=== PATIENT | female | born 1940 | race Caucasian/White ===

== ENCOUNTER 2017-02-01 11:59 | Emergency (ER) | payer MEDICARE, BC ==
[2017-02-01 12:30] VITALS: BP 131/88
--- NOTE | 2017-02-01 12:33 | EDM.PDOC ---
[id number] Time Seen by Provider: 02/01/17 12:15 Source of Information: Reports: Patient History Limitations: Reports: No Limitations - History of Present Illness INITIAL COMMENTS - FREE TEXT/NARRATIVE: 76-year-old female was in the hospital visiting her when she tripped and fell and hit her head hard on the floor. She had no loss of consciousness, has no neurologic symptoms and actually feels fine but she is on Coumadin and the charge nurse who saw her fall was concerned about the possibility of serious injury due to how hard her head hit the floor. She denies neck pain, no nausea or vomiting, no visual complaints. No other injuries Onset: Sudden Duration: Hour(s): (Within the last hour) Location: Reports: Head Severity: Mild Associated Symptoms: Reports: No Other Symptoms - Related Data Allergies Allergy/AdvReac Type Severity Reaction Status Date / Time amoxicillin Allergy Cannot Verified 02/18/16 14:26 Remember ampicillin Allergy Cannot Verified 02/18/16 14:26 Remember Home Meds: Home Meds Citalopram Hydrobromide [Citalopram HBr] 10 mg PO DAILY 02/18/16 [History] Famotidine [Take Home: Famotidine 20 MG, 3 Tab Pack] 20 mg PO BID 02/18/16 [ History] Metoprolol Succinate [Toprol XL] 25 mg PO DAILY 02/18/16 [History] Simvastatin [Simvastatin] 20 mg PO BEDTIME 02/18/16 [History] Warfarin [Coumadin] 5 mg PO .Pharmacy To Dose 02/18/16 [History] levETIRAcetam [Keppra] 1,000 mg PO BID 02/18/16 [History] Past Medical History Cardiovascular History: Reports: Afib, High Cholesterol Gastrointestinal History: Reports: Chronic Diarrhea, GERD Genitourinary History: Reports: Urinary Incontinence 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: Neurological History: Reports: CVA, Migraines, Seizure, Speech Problems Other Neuro History: hemiplegia right side Psychiatric History: Reports: Depression, Mood Swings - Past Surgical History Female Surgical History: Reports: Breast Biopsy, Hysterectomy Social & Family History - Tobacco Use Smoking Status *Q: Former Smoker - Recreational Drug Use Recreational Drug Use: No ED ROS GENERAL - Review of Systems Review Of Systems: See Below Constitutional: Denies: Fever, Chills Respiratory: Denies: Shortness of Breath Cardiovascular: Denies: Chest Pain GI/Abdominal: Denies: Nausea, Vomiting : Reports: No Symptoms 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: Reports: No Symptoms Skin: Reports: No Symptoms. Denies: Bruising Neurological: Denies: Headache ED EXAM, HEAD INJURY - Physical Exam Exam: See Below Exam Limited By: No Limitations General Appearance: Alert, No Apparent Distress Head: Atraumatic (I cannot find any physical evidence of trauma to the head or scalp) Nexus Criteria: No: Painful Distraction Injuries Neck: Non-Tender, Full Range of Motion Respiratory: No Respiratory Distress, Lungs Clear Neurologic: No Motor/Sensory Deficits, Normal Mood/Affect, Oriented x 3 Course - Vital Signs Last Recorded V/S: Last Vital Signs Temp 97.2 F 02/01/17 12:25 Pulse 80 02/01/17 12:25 Resp 16 02/01/17 12:25 BP 131/88 02/01/17 12:25 Pulse Ox 96 02/01/17 12:25 - Re-Assessments/Exams Free Text/Narrative Re-Assessment/Exam: 02/01/17 12:[address] without contrast was obtained. 02/01/17 12:53 Patient remained at her normal baseline without symptoms. CT was negative for acute findings. Departure - Departure Time of Disposition: 13:01 Disposition: Home, Self-Care 01 Condition: Good Clinical Impression: Closed head injury Qualifiers: Encounter type: initial encounter Qualified Code(s): S09.90XA - Unspecified injury of head, initial encounter - Discharge Information Instructions: Head Injury, Adult, [id number] Referrals: PCP,None [Primary Care Provider] - Forms: ED Department Discharge Care Plan Goals: Activity as tolerated, no change in medications. Return anytime if worsening or concerns.
--- NOTE | 2017-02-01 13:12 | CT ---
Head wo Cont HISTORY: fall, hit head Axial spiral noncontrasted CT scan of the brain was obtained along with high-resolution bone reconst ructions. COMPARISON: 02/18/2016 FINDINGS: No acute intracranial hemorrhage or infarct is identified. No mass lesion, mass effect, or midline shift is seen. Redemonstrated are low-attenuation changes in the deep white matter cerebral hemispheres bilaterally consistent with chronic microvascular ischemic disease. These changes are g reater on the left. Old lacunar infarcts are seen in the basal ganglia bilaterally volume less urban es in the left frontal, temporal, and parietal lobes appear stable probably correlating with the old ischemia. There is mild compensatory enlargement left lateral ventricle which is stable. No abnorma l extra-axial fluid collections are seen. Visualized paranasal sinuses and mastoid air cells are herberth ar. Bone windows show no evidence for fracture. IMPRESSION: 1. No acute hemorrhage, infarct, or other acute intracranial abnormality is identified. Negative for skull fracture. 2. Stable chronic microvascular ischemic changes and old lacunar infarcts. Stable mild cerebral atro phy. 3. Overall no significant interval change compared with 02/18/2016. Report was called to Dr. Tang in the Emergency Department at 1303 hours. Total DLP 827 mGycm
== END 2017-02-01 13:01 | disposition home or self-care (01) ==
LOC: JP.ED 11:59
DX: S09.90XA Unspecified injury of head, initial encounter (principal); I48.91 Unspecified atrial fibrillation; E78.00 Pure hypercholesterolemia, unspecified; K21.9 Gastro-esophageal reflux disease without esophagitis; F32.9 Major depressive disorder, single episode, unspecified; I69.351 Hemiplegia and hemiparesis following cerebral infarction affecting right dominant side; Z79.01 Long term (current) use of anticoagulants; Z79.899 Other long term (current) drug therapy; Z88.1 Allergy status to other antibiotic agents; Z90.710 Acquired absence of both cervix and uterus; Z87.891 Personal history of nicotine dependence; W01.0XXA Fall on same level from slipping, tripping and stumbling without subsequent striking against object, initial encounter
CPT/HCPCS: 70450; 70450-26; 99284; 99284-25

== ENCOUNTER 2017-12-21 12:38 | Emergency (ER) | payer MEDICARE, BC ==
[2017-12-21 13:30] VITALS: BP 118/60
--- NOTE | 2017-12-21 14:00 | EDM.PDOC ---
ED HPI GENERAL MEDICAL PROBLEM - General Chief Complaint: Upper Extremity Injury/Pain Stated Complaint: FELL ON STAIR AT HOME Time Seen by Provider: 12/21/17 13:30 Source of Information: Reports: Patient, Family History Limitations: Reports: Other (hx of stroke) - History of Present Illness INITIAL COMMENTS - FREE TEXT/NARRATIVE: Pt fell approx 6 feet off deck at her home. Pt hit her head and her rt elbow. Patient denies pain at this time. This is second fall in 2weeks. 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 brought patient in concerned as patient is on coumadin and previous fall had fractures to right arm Onset: Today Onset Date: 12/21/17 Duration: Hour(s): Location: Reports: Head, Upper Extremity, Right Severity: Mild Improves with: Reports: Other (denies pain) Worsens with: Reports: None Context: Reports: Trauma Associated Symptoms: Denies: Headaches Denies Pain Score (Numeric/FACES): 0 - Related Data Allergies Allergy/AdvReac Type Severity Reaction Status Date / Time amoxicillin Allergy Cannot Verified 12/21/17 13:42 Remember ampicillin Allergy Cannot Verified 12/21/17 13:42 Remember Home Meds: Home Meds Citalopram Hydrobromide [Citalopram HBr] 10 mg PO DAILY 02/18/16 [History] Metoprolol Succinate [Toprol XL] 25 mg PO DAILY 02/18/16 [History] RX: Famotidine [Take Home: Famotidine 20 MG, 3 Tab Pack] 20 mg PO BID 02/18/16 [ History] Simvastatin 20 mg PO BEDTIME 02/18/16 [History] Warfarin [Coumadin] 5 mg PO ASDIRECTED 02/18/16 [History] levETIRAcetam [Keppra] 1,000 mg PO BID 02/18/16 [History] Past Medical History Cardiovascular History: Reports: Afib, High Cholesterol Gastrointestinal History: Reports: Chronic Diarrhea, GERD Genitourinary History: Reports: Urinary Incontinence 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 Denies: Vision Change Respiratory: Reports: No Symptoms. Denies: Shortness of Breath Cardiovascular: Reports: No Symptoms. Denies: Chest Pain Endocrine: Reports: No Symptoms GI/Abdominal: Reports: No Symptoms. Denies: Abdominal Pain : Reports: No Symptoms 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: Reports: No Symptoms. Denies: Neck Pain, Shoulder Pain, Arm Pain, Back Pain Skin: Reports: No Symptoms Neurological: Reports: No Symptoms. Denies: Dizziness, Headache Psychiatric: Reports: No Symptoms ED EXAM, GENERAL - Physical Exam Exam: See Below Free Text/Narrative:: Pt conversing per her usual self. Able to answer questions however answers are not always appropriate to the question. This may be from previous stroke, however the patient did hit her head. Patient has abrasion to rt elbow. Denies pain. able to move all extremities. Full ROM of right elbow slight grimace with PROM to Right elbow Exam Limited By: Other (previous stroke) General Appearance: Alert, No Apparent Distress Eye Exam: Bilateral Eye: Vision Changes (denies vision changes since fall) Head: Normocephalic, Other (no outward signs of trauma to back of head) Neck: Normal Inspection, Full Range of Motion Respiratory/Chest: No Respiratory Distress, Lungs Clear, Normal Breath Sounds Cardiovascular: Normal Peripheral Pulses, Regular Rate, Rhythm, No Edema GI/Abdominal: Normal Bowel Sounds Back Exam: Full Range of Motion Extremities: Other (right foot drop) Neurological: Alert, Oriented, Memory Loss Recent Events, Other (does not remember the fall) Psychiatric: Normal Affect, Normal Mood Skin Exam: Warm, Dry, Other (abrasion to right elbow ) ED GENERAL MEDICAL PROCEDURES - Laceration/Wound Repair Right Elbow Appearance: Superficial Distal NVT: Neuro & Vascular Intact Course - Vital Signs Text/Narrative:: Plan for CT of head without contrast due to fall of 6ft without remembering the incident and plain films of the elbow. Last Recorded V/S: Last Vital Signs Temp 35.7 C 12/21/17 13:55 Pulse 73 12/21/17 13:55 Resp 16 12/21/17 13:55 BP 118/60 12/21/17 13:55 Pulse Ox 95 12/21/17 13:55 - Orders/Labs/Meds Orders: Active Orders 24 hr Category Date Time Status Head wo Cont [CT] Stat Exams 12/21/17 14:07 Ordered - Radiology Interpretation Free Text/Narrative:: No acute fracture or effusion to rt elbow per radiologist No acute bleed or fracture on CT per radiologist CT Results Date: 12/21/17 Departure - Departure Time of Disposition: 15:20 Disposition: Home, Self-Care 01 Condition: Good Clinical Impression: Concussion - Discharge Information Instructions: Head Injury, Adult, [id number] Referrals: Huber Roberson MD [Primary Care Provider] - Forms: ED Department Discharge Additional Instructions: Your xrays do not show any new injury of or broken bones in the head or in your right elbow. Cleanse your elbow and keep it clean to prevent infection. Follow -up with your primary care provider regarding potential PT assistance for your increasing right foot drop. Use your cane or walker as appropriate for greater stability and to prevent future falls. Care Plan Goals: Return to ER if any concern or changes in mental status. Rest today and return to your activity as tolerated. Followup with Dr. Roberson as needed - Problem List & Annotations (1) Concussion SNOMED Code(s): 252676312 Code(s): S06.0X9A - CONCUSSION W LOSS OF CONSCIOUSNESS OF UNSP DURATION, INIT Status: Acute - My Orders Last 24 Hours: My Active Orders 12/21/17 14:07 Head wo Cont [CT] Stat - Assessment/Plan Last 24 Hours: My Active Orders 12/21/17 14:07 Head wo Cont [CT] Stat
--- NOTE | 2017-12-21 14:32 | CR ---
Elbow Min 3V Rt CLINICAL HISTORY: Fall FINDINGS: No acute fracture or dislocation is noted. The fat pads are in normal position . There is s ome minimal spurring off of the medial epicondyle. Impression: No acute fracture or effusion Minimal spurring off the medial epicondyle
--- NOTE | 2017-12-21 22:39 | CT ---
CT concussion Head wo Cont CLINICAL HISTORY: Fall, head trauma COMPARISON: 01 February 2017 TECHNIQUE: Transverse scans were obtained from the base of the skull through the vertex without IV co ntrast on a multislice, multidetector CT scanner. Auto dosage reduction and iterative reconstruction techniques employed. FINDINGS: There is an area of encephalomalacia in the left temporal parietal and left basal ganglia r egion. This is similar to prior study. There is some periventricular and subcortical lucency bilatera lly unchanged from prior study. There is no mass effect or hemorrhage. No skull fracture is identifie d. There is no mass effect, hemorrhage, or extraaxial collection. The basal cisterns and sulci over t he convexities are prominent. The ventricles are prominent. 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 This is unchanged since 2017 Moderate age-related atrophy. Chronic ischemic microvascular changes No hemorrhage or extra-axial collection seen Without
== END 2017-12-21 15:20 | disposition home or self-care (01) ==
LOC: JP.ED 12:38
DX: S06.0X0A Concussion without loss of consciousness, initial encounter (principal); S50.311A Abrasion of right elbow, initial encounter; I48.91 Unspecified atrial fibrillation; E78.00 Pure hypercholesterolemia, unspecified; K21.9 Gastro-esophageal reflux disease without esophagitis; Z88.1 Allergy status to other antibiotic agents; Z79.899 Other long term (current) drug therapy; Y99.0 Civilian activity done for income or pay; W10.8XXA Fall (on) (from) other stairs and steps, initial encounter
CPT/HCPCS: 70450; 70450-26; 73080-26-RT; 73080-RT; 99284-25

== ENCOUNTER 2018-11-28 22:57 | Emergency (ER) | payer MEDICARE, BC ==
[2018-11-28 23:09] VITALS: BP 109/52
[2018-11-28] MEDS ORDERED: Bacitracin Oint 1 GM U/D Packet TOP ONE (23:25)
--- NOTE | 2018-11-28 23:37 | EDM.PDOC ---
ED HPI GENERAL MEDICAL PROBLEM - General Chief Complaint: Laceration Stated Complaint: CUT LEG IN SHOWER Time Seen by Provider: 11/28/18 23:10 Source of Information: Reports: Patient, Family History Limitations: Reports: No Limitations - History of Present Illness INITIAL COMMENTS - FREE TEXT/NARRATIVE: 78-year-old female with a previous stroke who has right-sided weakness has been falling fairly frequently, tonight she fell in the shower and scraped the anterior aspect of her right lower leg. Onset: Sudden Duration: Hour(s): (1 hour ago) Location: Reports: Lower Extremity, Right Associated Symptoms: Denies: Chest Pain, Cough, Fever/Chills, Nausea/Vomiting, Shortness of Breath - Related Data Allergies Allergy/AdvReac Type Severity Reaction Status Date / Time amoxicillin Allergy Cannot Verified 11/28/18 23:14 Remember ampicillin Allergy Cannot Verified 11/28/18 23:14 Remember Home Meds: Home Meds Citalopram Hydrobromide [Citalopram HBr] 10 mg PO BID 02/18/16 [History] Famotidine [Take Home: Famotidine 20 MG, 3 Tab Pack] 20 mg PO BID 02/18/16 [ History] Metoprolol Succinate [Toprol XL] 25 mg PO DAILY 02/18/16 [History] Simvastatin 20 mg PO BEDTIME 02/18/16 [History] Warfarin [Coumadin] 5 mg PO ASDIRECTED 02/18/16 [History] levETIRAcetam [Keppra] 1,000 mg PO BID 02/18/16 [History] Past Medical History Cardiovascular History: Reports: Afib, High Cholesterol Gastrointestinal History: Reports: Chronic Diarrhea, GERD Genitourinary History: Reports: Urinary Incontinence 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: 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 History: Reports: Fracture, Other (See Below) Other 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 History: r elbow stress fx Neurological History: Reports: CVA, Migraines, Seizure, Speech Problems Other Neuro History: hemiplegia right side Psychiatric History: Reports: Depression, Mood Swings Hematologic History: Reports: Anticoagulation Therapy - Infectious Disease History Infectious Disease History: Reports: Chicken Pox, Measles, Mumps - Past Surgical History Female Surgical History: Reports: Breast Biopsy, Hysterectomy 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 Surgical History: Reports: Hip Replacement, Other (See Below) Other 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 Surgeries/Procedures:: partial hip replacement to fix femur neck fracture Social & Family History - Family History Family Medical History: Unobtainable - Tobacco Use Smoking Status *Q: Unknown Ever Smoked - Caffeine Use Caffeine Use: Reports: None ED ROS GENERAL - Review of Systems Review Of Systems: See Below Constitutional: Denies: Fever, Chills, Malaise Respiratory: Denies: Shortness of Breath Cardiovascular: Denies: Chest Pain GI/Abdominal: Denies: Abdominal Pain Neurological: Reports: Other (Chronic right sided weakness from previous stroke) Psychiatric: Reports: No Symptoms ED EXAM, SKIN/RASH Exam: See Below Exam Limited By: No Limitations General Appearance: Alert, No Apparent Distress Head: Atraumatic Respiratory/Chest: No Respiratory Distress Extremities: Other (exam otherwise limited to the right lower extremity. She has a 14 cm longitudinal superficial skin tear/laceration of the anterior lower leg. No bony tenderness.) Neurological: Alert, Oriented Course - Vital Signs Last Recorded V/S: Last Vital Signs Temp 98.9 F 11/28/18 23:20 Pulse 94 11/28/18 23:20 Resp 14 11/28/18 23:20 BP 109/52 L 11/28/18 23:20 Pulse Ox 96 11/28/18 23:20 - Orders/Labs/Meds Meds: Medications Discontinued Medications Generic Name Dose Route Start Last Admin Trade Name Freq PRN Reason Stop Dose Admin Bacitracin 1 dose 11/28/18 23:25 11/28/18 23:56 Bacitracin Oint 1 Gm TOP 11/28/18 23:26 1 dose ONETIME ONE Administration - Re-Assessments/Exams Free Text/Narrative Re-Assessment/Exam: 11/29/18 17:43 The wound was cleaned, some bacitracin applied and a nonstick dressing and bandage with mild pressure. She should have this redressed and examined in 2 days. Departure - Departure Time of Disposition: 00:40 Disposition: Home, Self-Care 01 Condition: Good Clinical Impression: Laceration of right lower leg Qualifiers: Encounter type: initial encounter Qualified Code(s): S81.811A - Laceration without foreign body, right lower leg, initial encounter - Discharge Information Instructions: Wound Care, Adult Referrals: Huber Roberson MD [Primary Care Provider] - Forms: ED Department Discharge Care Plan Goals: Keep wound covered until morning, and consider a dressing change and reevaluation at the clinic on . Dr. Benítez has special training in wound care, if he is able to fit you in I would recommend him if possible. If not any of the primary providers at the clinic should see you on .
== END 2018-11-29 00:25 | disposition home or self-care (01) ==
LOC: JP.ED 22:57
DX: S81.811A Laceration without foreign body, right lower leg, initial encounter (principal); E78.00 Pure hypercholesterolemia, unspecified; K21.9 Gastro-esophageal reflux disease without esophagitis; Z79.01 Long term (current) use of anticoagulants; I48.91 Unspecified atrial fibrillation; Z86.73 Personal history of transient ischemic attack (TIA), and cerebral infarction without residual deficits; Z79.899 Other long term (current) drug therapy; Z88.1 Allergy status to other antibiotic agents; W18.2XXA Fall in (into) shower or empty bathtub, initial encounter
CPT/HCPCS: 99282

== ENCOUNTER 2019-07-11 17:36 | Inpatient (IN) | payer MEDICARE, BC ==
--- NOTE | 2019-07-11 18:16 | EDM.PDOC ---
ED HPI GENERAL MEDICAL PROBLEM - General Chief Complaint: General Stated Complaint: CONFUSION Time Seen by Provider: 07/11/19 18:16 Source of Information: Reports: Patient, Family History Limitations: Reports: Altered Mental Status - History of Present Illness INITIAL COMMENTS - FREE TEXT/NARRATIVE: 79 years old female patient with history of baseline dementia, seizure, A. fib and other medical problem presented to the ER by her with a chief complaint of worsening confusion and altered mental status since last night. History collected from her at the bedside due to her altered mental status. Progressively getting worse. No report of any cough or fever. No report of any chest pain or shortness breath. No report of any head injury or loss of consciousness. No report of any change of her urination. No diarrhea or constipation. - Related Data Allergies Allergy/AdvReac Type Severity Reaction Status Date / Time amoxicillin Allergy Cannot Verified 07/11/19 18:19 Remember ampicillin Allergy Cannot Verified 07/11/19 18:19 Remember Home Meds: Home Meds Citalopram Hydrobromide [Citalopram HBr] 10 mg PO BID 02/18/16 [History] Famotidine [Take Home: Famotidine 20 MG, 3 Tab Pack] 20 mg PO BID 02/18/16 [ History] Metoprolol Succinate [Toprol XL] 25 mg PO DAILY 02/18/16 [History] Simvastatin 20 mg PO BEDTIME 02/18/16 [History] Warfarin [Coumadin] 5 mg PO ASDIRECTED 02/18/16 [History] levETIRAcetam [Keppra] 1,000 mg PO BID 02/18/16 [History] FLUoxetine HCl [Fluoxetine HCl] 20 mg PO DAILY 07/11/19 [History] Past Medical History Cardiovascular History: Reports: Afib, High Cholesterol Gastrointestinal History: Reports: Chronic Diarrhea, GERD Genitourinary History: Reports: Urinary Incontinence 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: 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 History: Reports: Fracture, Other (See Below) Other 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 History: r elbow stress fx Neurological History: Reports: CVA, Migraines, Seizure, Speech Problems Other Neuro History: hemiplegia right side Psychiatric History: Reports: Depression, Mood Swings Hematologic History: Reports: Anticoagulation Therapy - Infectious Disease History Infectious Disease History: Reports: Chicken Pox, Measles, Mumps - Past Surgical History Female Surgical History: Reports: Breast Biopsy, Hysterectomy 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 Surgical History: Reports: Hip Replacement, Other (See Below) Other 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 Surgeries/Procedures:: partial hip replacement to fix femur neck fracture Social & Family History - Family History Family Medical History: Unobtainable - Caffeine Use Caffeine Use: Reports: None ED ROS GENERAL - Review of Systems Review Of Systems: Unable To Obtain Reason Not Obtained: Altered mental status ED EXAM, GENERAL - Physical Exam Exam: See Below Exam Limited By: Altered Mental Status General Appearance: No Apparent Distress, Lethargic Eye Exam: Bilateral Eye: PERRL Nose: Normal Inspection, Normal Mucosa, No Blood Throat/Mouth: Normal Inspection, Normal Lips, Normal Teeth, Normal Gums, Normal Oropharynx, Normal Voice, No Airway Compromise Head: Atraumatic, Normocephalic Neck: Normal Inspection, Supple, Non-Tender, Full Range of Motion Respiratory/Chest: No Respiratory Distress, Lungs Clear, Normal Breath Sounds, No Accessory Muscle Use, Chest Non-Tender Cardiovascular: Irregularly Irregular GI/Abdominal: Normal Bowel Sounds, Soft, Non-Tender, No Organomegaly, No Distention, No Abnormal Bruit, No Mass Neurological: Disoriented, Other (Responsive to verbal similar eye. She on her eyes. Answer questions by yes and no. Follow commands, squeezing my fingers but did not wiggle her toes.) Course - Vital Signs Last Recorded V/S: Last Vital Signs Temp 36.7 C 07/11/19 18:18 Pulse 78 07/11/19 18:51 Resp 16 07/11/19 18:18 BP 127/67 07/11/19 18:51 Pulse Ox 95 07/11/19 18:18 - Orders/Labs/Meds Orders: Active Orders 24 hr Category Date Time Status EKG Documentation Completion [RC] ASDIRECTED Care 07/11/19 18:19 Active EKG 12 Lead [EK] Urgent Ther 07/11/19 18:17 Ordered Labs: Laboratory Tests 07/11/19 07/11/19 07/11/19 Range/Units 18:26 18:26 18:26 WBC 8.8 (4.5-11.0) K/uL RBC 4.26 (3.30-5.50) M/uL Hgb 13.2 (12.0-15.0) g/dL Hct 41.8 (36.0-48.0) % MCV 98 (80-98) fL MCH 31 (27-31) pg MCHC 32 (32-36) % Plt Count 164 (150-400) K/uL Neut % (Auto) 63 (36-66) % Lymph % (Auto) 23 L (24-44) % [place] % (Auto) 13 H (2-6) % Eos % (Auto) 1 L (2-4) % Baso % (Auto) 1 (0-1) % PT 15.0 H (9.5-12.0) sec INR 1.42 H (0.80-1.20) Sodium 144 (140-148) mmol/L Potassium 3.7 (3.6-5.2) mmol/L Chloride 106 (100-108) mmol/L Carbon Dioxide 30 (21-32) mmol/L Anion Gap 8.4 (5.0-14.0) mmol/L BUN 22 H (7-18) mg/dL Creatinine 0.8 (0.6-1.0) mg/dL Est Cr Clr Drug Dosing 56.58 mL/min Estimated GFR (MDRD) > 60 (>60) Glucose 111 H (74-106) mg/dL Lactic Acid (0.4-2.0) mmol/L Calcium 8.7 (8.5-10.1) mg/dL Total Bilirubin 1.3 H (0.2-1.0) mg/dL AST 8 L (15-37) U/L ALT 15 (12-78) U/L Alkaline Phosphatase 82 (46-116) U/L Ammonia (11-32) mmol/L Troponin I < 0.017 (0.000-0.056) ng/mL Total Protein 7.0 (6.4-8.2) g/dL Albumin 3.7 (3.4-5.0) g/dL Globulin 3.3 (2.3-3.5) g/dL Albumin/Globulin Ratio 1.1 L (1.2-2.2) Lipase 59 L (73-393) U/L Urine Color (YELLOW) Urine Appearance (CLEAR) Urine pH (5.0-8.0) Ur Specific [place] (1.008-1.030) Urine Protein (NEGATIVE) mg/dL Urine Glucose (UA) (NEGATIVE) mg/dL Urine Ketones (NEGATIVE) mg/dL Urine Occult Blood (NEGATIVE) Urine Nitrite (NEGATIVE) Urine Bilirubin (NEGATIVE) Urine Urobilinogen (0.2-1.0) EU/dL Ur Leukocyte Esterase (NEGATIVE) Urine RBC (0-5) Urine WBC (0-5) Ur Epithelial Cells Amorphous Sediment Urine Bacteria Urine Mucus 07/11/19 07/11/19 07/11/19 Range/Units 18:26 18:26 18:27 WBC (4.5-11.0) K/uL RBC (3.30-5.50) M/uL Hgb (12.0-15.0) g/dL Hct (36.0-48.0) % MCV (80-98) fL MCH (27-31) pg MCHC (32-36) % Plt Count (150-400) K/uL Neut % (Auto) (36-66) % Lymph % (Auto) (24-44) % [place] % (Auto) (2-6) % Eos % (Auto) (2-4) % Baso % (Auto) (0-1) % PT (9.5-12.0) sec INR (0.80-1.20) Sodium (140-148) mmol/L Potassium (3.6-5.2) mmol/L Chloride (100-108) mmol/L Carbon Dioxide (21-32) mmol/L Anion Gap (5.0-14.0) mmol/L BUN (7-18) mg/dL Creatinine (0.6-1.0) mg/dL Est Cr Clr Drug Dosing mL/min Estimated GFR (MDRD) (>60) Glucose (74-106) mg/dL Lactic Acid 1.8 (0.4-2.0) mmol/L Calcium (8.5-10.1) mg/dL Total Bilirubin (0.2-1.0) mg/dL AST (15-37) U/L ALT (12-78) U/L Alkaline Phosphatase (46-116) U/L Ammonia 17 (11-32) mmol/L Troponin I (0.000-0.056) ng/mL Total Protein (6.4-8.2) g/dL Albumin (3.4-5.0) g/dL Globulin (2.3-3.5) g/dL Albumin/Globulin Ratio (1.2-2.2) Lipase (73-393) U/L Urine Color [place] A (YELLOW) Urine Appearance Cloudy A (CLEAR) Urine pH 6.0 (5.0-8.0) Ur Specific [place] 1.025 (1.008-1.030) Urine Protein Negative (NEGATIVE) mg/dL Urine Glucose (UA) Negative (NEGATIVE) mg/dL Urine Ketones Negative (NEGATIVE) mg/dL Urine Occult Blood Small H (NEGATIVE) Urine Nitrite Positive H (NEGATIVE) Urine Bilirubin Negative (NEGATIVE) Urine Urobilinogen 4.0 H (0.2-1.0) EU/dL Ur Leukocyte Esterase Negative (NEGATIVE) Urine RBC 5-10 H (0-5) Urine WBC 0-5 (0-5) Ur Epithelial Cells Many Amorphous Sediment Few Urine Bacteria Moderate Urine Mucus Not seen - Re-Assessments/Exams Free Text/Narrative Re-Assessment/Exam: 07/11/19 18:46 Patient was seen and examined shortly after arrival. EKG shows no sign of acute ischemia or arrhythmia. Lab and imaging reviewed with the patient and her at the bedside. Possible UTI. Urine sent for culture. Patient started on Cipro. CT head shows no acute abnormalities. 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 She accepted admission for further management. Patient agrees with the plan. Stable for admission. 07/11/19 19:54 07/11/19 19:56 Well. He is supposed to using benzos as well as [facility] otherwise Departure - Departure Time of Disposition: 19:50 Disposition: Admitted As Inpatient 65 Condition: Poor Clinical Impression: Altered mental status, Subtherapeutic international normalized ratio (INR) UTI (urinary tract infection) Qualifiers: Urinary tract infection type: acute cystitis Hematuria presence: with hematuria Qualified Code(s): N30.01 - Acute cystitis with hematuria - Discharge Information Referrals: Huber Roberson MD [Primary Care Provider] - Forms: ED Department Discharge Sepsis Event Note - Focused Exam Vital Signs: Vital Signs Temp Pulse Resp BP Pulse Ox 07/11/19 18:51 78 127/67 07/11/19 18:18 36.7 C 79 16 116/58 L 95 07/11/19 18:11 36.7 C 79 16 116/58 L 95 Date Exam was Performed: 07/11/19 Time Exam was Performed: 19:50 - My Orders Last 24 Hours: My Active Orders 07/11/19 18:17 EKG 12 Lead [EK] Urgent 07/11/19 18:19 EKG Documentation Completion [RC] ASDIRECTED - Assessment/Plan Last 24 Hours: My Active Orders 07/11/19 18:17 EKG 12 Lead [EK] Urgent 07/11/19 18:19 EKG Documentation Completion [RC] ASDIRECTED Plan: Admit to [facility]
--- NOTE | 2019-07-11 19:11 | CRLCT ---
INDICATION: Confusion TECHNIQUE: CT scan of the brain was performed without contrast. COMPARISON: No comparison. FINDINGS: Extra-axial spaces: Mildly prominent. No extra-axial hemorrhage. The extra-axial spaces are also prominent at the cisterna magna. Ventricles: Mildly prominent. No midline shift. Brain: No intra-axial hemorrhage. No intracranial mass. Diffuse decreased attenuation in the periventricular white matter. There is asymmetric decreased attenuation in the white matter in the left hemisphere involving the left temporal lobe. Asymmetric dilatation is present in the left lateral ventricle and left frontal horn which is probably from secondary ex vacuo volume loss. Suspect previous encephalomalacia. This is similar to the prior study. Atherosclerotic intracranial vascular calcification. 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 Bony calvarium: No significant abnormalities. IMPRESSION: 1. No new hemorrhage or intracranial acute radiographic abnormality. 2. Chronic changes described above suggesting cerebral volume loss and probable chronic ischemic microvascular decreased attenuation in the central white matter. These are stable. Please note that all CT scans at this facility use dose modulation, iterative reconstruction, and/or weight-based dosing when appropriate to reduce radiation dose to as low as reasonably achievable. Dictated by Dale Giordano MD @ Jul 11 2019 7:05PM Signed by Dr. Dale Giordano @ Jul 11 2019 7:10PM
[2019-07-11] MEDS ORDERED: Ciprofloxacin in D5W 400 MG in Premix Bag 1 BAG IV ONE ×2 (19:52)
--- NOTE | 2019-07-11 21:05 | PCM.HP.2 ---
H&P History of Present Illness - General Date of Service: 07/11/19 Admit Problem/Dx: Admission Diagnosis/Problem Admission Diagnosis/Problem Urinary tract infection Source of Information: Family ( of 60 years and Sister), Provider, RN History Limitations: Reports: Altered Mental Status - History of Present Illness Initial Comments - Free Text/Narative: 79 years old female patient with history of baseline dementia, seizure, A. fib and other medical problem presented to the ER by her with a chief complaint of worsening confusion and altered mental status since last night. History collected from her at the bedside due to her altered mental status. Progressively getting worse. No report of any cough or fever. No report of any chest pain or shortness breath. No report of any head injury or loss of consciousness. No report of any change of her urination. No diarrhea or constipation. Onset of Symptoms: Reports: Today ( reports last night was restless then this morning woke up confused.) Symptom Onset Date: 07/11/19 Duration of Symptoms: Reports: Hour(s):, Getting Worse Location: Reports: Generalized Quality: Reports: Same as Previous Episode Severity: Severe Improves with: Reports: None Worsens with: Reports: None Associated Symptoms: Reports: Confusion, Fever/Chills, Loss of Appetite (ate one banana ), Weakness - Related Data Allergies/Adverse Reactions: Allergies Allergy/AdvReac Type Severity Reaction Status Date / Time amoxicillin Allergy Cannot Verified 07/11/19 18:19 Remember ampicillin Allergy Cannot Verified 07/11/19 18:19 Remember Home Medications: Home Meds Citalopram Hydrobromide [Citalopram HBr] 10 mg PO BID 02/18/16 [History] Famotidine [Take Home: Famotidine 20 MG, 3 Tab Pack] 20 mg PO BID 02/18/16 [ History] Metoprolol Succinate [Toprol XL] 25 mg PO DAILY 02/18/16 [History] Simvastatin 20 mg PO BEDTIME 02/18/16 [History] Warfarin [Coumadin] 5 mg PO ASDIRECTED 02/18/16 [History] levETIRAcetam [Keppra] 1,000 mg PO BID 02/18/16 [History] FLUoxetine HCl [Fluoxetine HCl] 20 mg PO DAILY 07/11/19 [History] Past Medical History Cardiovascular History: Reports: Afib, High Cholesterol Gastrointestinal History: Reports: Chronic Diarrhea, GERD Genitourinary History: Reports: 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: 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 History: Reports: Fracture, Other (See Below) Other 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 History: r elbow stress fx Neurological History: Reports: CVA, Migraines, Seizure, Speech Problems Other Neuro History: hemiplegia right side Psychiatric History: Reports: Depression, Mood Swings Hematologic History: Reports: Anticoagulation Therapy - Infectious Disease History Infectious Disease History: Reports: Chicken Pox, Measles, Mumps - Past Surgical History Female Surgical History: Reports: Breast Biopsy, Hysterectomy 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 Surgical History: Reports: Hip Replacement, Other (See Below) Other 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 Surgeries/Procedures:: partial hip replacement to fix femur neck fracture Social & Family History - Family History Family Medical History: Unobtainable - Tobacco Use Smoking Status *Q: Former Smoker Used Tobacco, but Quit: Yes Month/Year Tobacco Last Used: 50 years - Caffeine Use Caffeine Use: Reports: None Caffeine Use Comment: rarely - Recreational Drug Use Recreational Drug Use: No - Living Situation & Occupation Living situation: Reports: (lives with , will be 59 years next month, had 4 children, retired, lives [place] of [place] [address] Occupation: Disabled H&P Review of Systems - Review of Systems: Review Of Systems: Unable To Obtain (Mrs. Baugh is non-verbal, smiles and winks her eye, give report of symptoms.) Reason Not Obtained: altered mental status, non-verbal General: Reports: Weakness, Decreased Appetite Psychiatric: Reports: Confusion Neurological: Reports: Pre-Existing Deficit, Weakness Hematologic/Lymphatic: Reports: Anemia (coumadin therapy) Immunologic: Reports: No Symptoms Exam - Exam Exam: See Below - Vital Signs Vital Signs: Last Vital Signs Temp 36.7 C 07/11/19 18:18 Pulse 88 07/11/19 20:43 Resp 16 07/11/19 18:18 BP 127/75 07/11/19 20:43 Pulse Ox 95 07/11/19 18:18 Weight: 69.4 kg - Exam Quality Assessment: DVT Prophylaxis General: Alert HEENT: PERRLA, Conjunctiva Clear, Pupils Equal, Pupils Reactive, Other (mouth is open, tongue is dry. open eyes and looks around. ). No: TMs Clear ( bilateral ear wax present.) Neck: Supple, Trachea Midline Lungs: Clear to Auscultation, Normal Respiratory Effort Cardiovascular: Irregular Rhythm GI/Abdominal Exam: Normal Bowel Sounds, Soft, Non-Tender, No Organomegaly (Female) Exam: Normal External Exam (wearing a adult diaper) Rectal (Female) Exam: Deferred Extremities: Other (feet are cool. movement of legs noted. ) Skin: Dry, Intact, Cool Neurological: Reflexes Unequal (right sided weakness due to CVA 13 years ago.) Neuro Extensive - Mental Status: Other (opens eyes, non-verbal) Neuro Extensive - Motor, Sensory, Reflexes: Motor/Sensory Deficits Psychiatric: Other (awake. unable to assess.) - Patient Data Lab Results Last 24 hrs: Laboratory Results - last 24 hr 07/11/19 07/11/19 07/11/19 Range/Units 18:26 18:26 18:26 WBC 8.8 (4.5-11.0) K/uL RBC 4.26 (3.30-5.50) M/uL Hgb 13.2 (12.0-15.0) g/dL Hct 41.8 (36.0-48.0) % MCV 98 (80-98) fL MCH 31 (27-31) pg MCHC 32 (32-36) % Plt Count 164 (150-400) K/uL Neut % (Auto) 63 (36-66) % Lymph % (Auto) 23 L (24-44) % [place] % (Auto) 13 H (2-6) % Eos % (Auto) 1 L (2-4) % Baso % (Auto) 1 (0-1) % PT 15.0 H (9.5-12.0) sec INR 1.42 H (0.80-1.20) Sodium 144 (140-148) mmol/L Potassium 3.7 (3.6-5.2) mmol/L Chloride 106 (100-108) mmol/L Carbon Dioxide 30 (21-32) mmol/L Anion Gap 8.4 (5.0-14.0) mmol/L BUN 22 H (7-18) mg/dL Creatinine 0.8 (0.6-1.0) mg/dL Est Cr Clr Drug Dosing 56.58 mL/min Estimated GFR (MDRD) > 60 (>60) Glucose 111 H (74-106) mg/dL Lactic Acid (0.4-2.0) mmol/L Calcium 8.7 (8.5-10.1) mg/dL Total Bilirubin 1.3 H (0.2-1.0) mg/dL AST 8 L (15-37) U/L ALT 15 (12-78) U/L Alkaline Phosphatase 82 (46-116) U/L Ammonia (11-32) mmol/L Troponin I < 0.017 (0.000-0.056) ng/mL Total Protein 7.0 (6.4-8.2) g/dL Albumin 3.7 (3.4-5.0) g/dL Globulin 3.3 (2.3-3.5) g/dL Albumin/Globulin Ratio 1.1 L (1.2-2.2) Lipase 59 L (73-393) U/L Urine Color (YELLOW) Urine Appearance (CLEAR) Urine pH (5.0-8.0) Ur Specific [place] (1.008-1.030) Urine Protein (NEGATIVE) mg/dL Urine Glucose (UA) (NEGATIVE) mg/dL Urine Ketones (NEGATIVE) mg/dL Urine Occult Blood (NEGATIVE) Urine Nitrite (NEGATIVE) Urine Bilirubin (NEGATIVE) Urine Urobilinogen (0.2-1.0) EU/dL Ur Leukocyte Esterase (NEGATIVE) Urine RBC (0-5) Urine WBC (0-5) Ur Epithelial Cells Amorphous Sediment Urine Bacteria Urine Mucus 07/11/19 07/11/19 07/11/19 Range/Units 18:26 18:26 18:27 WBC (4.5-11.0) K/uL RBC (3.30-5.50) M/uL Hgb (12.0-15.0) g/dL Hct (36.0-48.0) % MCV (80-98) fL MCH (27-31) pg MCHC (32-36) % Plt Count (150-400) K/uL Neut % (Auto) (36-66) % Lymph % (Auto) (24-44) % [place] % (Auto) (2-6) % Eos % (Auto) (2-4) % Baso % (Auto) (0-1) % PT (9.5-12.0) sec INR (0.80-1.20) Sodium (140-148) mmol/L Potassium (3.6-5.2) mmol/L Chloride (100-108) mmol/L Carbon Dioxide (21-32) mmol/L Anion Gap (5.0-14.0) mmol/L BUN (7-18) mg/dL Creatinine (0.6-1.0) mg/dL Est Cr Clr Drug Dosing mL/min Estimated GFR (MDRD) (>60) Glucose (74-106) mg/dL Lactic Acid 1.8 (0.4-2.0) mmol/L Calcium (8.5-10.1) mg/dL Total Bilirubin (0.2-1.0) mg/dL AST (15-37) U/L ALT (12-78) U/L Alkaline Phosphatase (46-116) U/L Ammonia 17 (11-32) mmol/L Troponin I (0.000-0.056) ng/mL Total Protein (6.4-8.2) g/dL Albumin (3.4-5.0) g/dL Globulin (2.3-3.5) g/dL Albumin/Globulin Ratio (1.2-2.2) Lipase (73-393) U/L Urine Color [place] A (YELLOW) Urine Appearance Cloudy A (CLEAR) Urine pH 6.0 (5.0-8.0) Ur Specific [place] 1.025 (1.008-1.030) Urine Protein Negative (NEGATIVE) mg/dL Urine Glucose (UA) Negative (NEGATIVE) mg/dL Urine Ketones Negative (NEGATIVE) mg/dL Urine Occult Blood Small H (NEGATIVE) Urine Nitrite Positive H (NEGATIVE) Urine Bilirubin Negative (NEGATIVE) Urine Urobilinogen 4.0 H (0.2-1.0) EU/dL Ur Leukocyte Esterase Negative (NEGATIVE) Urine RBC 5-10 H (0-5) Urine WBC 0-5 (0-5) Ur Epithelial Cells Many Amorphous Sediment Few Urine Bacteria Moderate Urine Mucus Not seen Result Diagrams: 07/11/19 18:26 07/11/19 18:26 EKG INTERPRETATION Rhythm: A-Fib Sepsis Event Note - Evaluation Sepsis Screening Result: No Definite Risk - Focused Exam Vital Signs: Vital Signs Temp Pulse Resp BP Pulse Ox 07/11/19 20:43 88 127/75 07/11/19 18:51 78 127/67 07/11/19 18:18 36.7 C 79 16 116/58 L 95 07/11/19 18:11 36.7 C 79 16 116/58 L 95 Date Exam was Performed: 07/11/19 Time Exam was Performed: 21:20 - Problem List (1) Urinary tract infection SNOMED Code(s): 63438897 ICD Code: N39.0 - URINARY TRACT INFECTION, SITE NOT SPECIFIED Status: Acute Priority: High Current Visit: Yes Qualifiers: Urinary tract infection type: acute cystitis Hematuria presence: with hematuria Qualified Code(s): N30.01 - Acute cystitis with hematuria (2) History of stroke with residual deficit SNOMED Code(s): 482670198 ICD Code: I69.30 - UNSPECIFIED SEQUELAE OF CEREBRAL INFARCTION Status: Acute Priority: Low Current Visit: Yes (3) Chronic atrial fibrillation SNOMED Code(s): 005002145 ICD Code: I48.2 - CHRONIC ATRIAL FIBRILLATION * DO NOT USE * Status: Chronic Priority: Low Current Visit: No (4) Seizure, epileptic SNOMED Code(s): 76999485 ICD Code: G40.909 - EPILEPSY, UNSP, NOT INTRACTABLE, WITHOUT STATUS EPILEPTICUS Status: Chronic Priority: High Current Visit: No Qualifiers: Epilepsy type: unspecified Intractability: not intractable Status epilepticus: without status epilepticus Qualified Code(s): G40.909 - Epilepsy , unspecified, not intractable, without status epilepticus Problem List Initiated/Reviewed/Updated: Yes Orders Last 24hrs: Active Orders 24 hr Category Date Time Status Patient Status Manage Transfer [TRANSFER] Routine ADT 07/11/19 20:29 Active EKG Documentation Completion [RC] ASDIRECTED Care 07/11/19 18:19 Active CULTURE URINE [RM] Stat Lab 07/11/19 20:07 Received Resuscitation Status Routine Resus Stat 07/11/19 20:30 Ordered EKG 12 Lead [EK] Urgent Ther 07/11/19 18:17 Ordered Assessment/Plan Comment:: Assessment/Plan Comment:: 79 years old female patient with history of baseline dementia, seizure, A. fib and other medical problem presented to the ER by her with a chief complaint of worsening confusion and altered mental status since last night. History collected from her at the bedside due to her altered mental status. Progressively getting worse. No report of any cough or fever. No report of any chest pain or shortness breath. No report of any head injury or loss of consciousness. No report of any change of her urination. No diarrhea or constipation. ER work up: Patient was seen and examined shortly after arrival. EKG shows no sign of acute ischemia or arrhythmia. Lab and imaging reviewed with the patient and her at the bedside. Possible UTI. Urine sent for culture. Patient started on Cipro. CT head shows no acute abnormalities. [facility] She accepted admission for further management. Patient agrees with the plan. Stable for admission. ASSESSMENT AND PLAN - Acute Urinary Tract Infection with hematuria, confusion and weakness. -IV Cipro 400mg bid -IV fluids Normal Saline 125ml/hr -pending urine culture -Physical therapy for weakness -labs - CBC.BMP Seizure disorder -continue Keppra 1000 mg po bid -labs-Keppra Level pending History of Stroke with right side weakness, 90% of speech is gone per . -continue home medication Chronic A. Fib -continue home medications -INR sub therapeutic, increased dose to 5mg per [facility] -Coumadin 5 mg po in am -Labs- INR, PT Maintenance issues - - DVT prophylaxis -Coumadin - GI prophylaxis -PPI - Nutrition -regular - Walker catheter -not indicated CODE STATUS -DNR/DNI Admission justification -this patient will be admitted for inpatient services and is medically appropriate meeting medical necessity for inpatient admission as outlined in my documentation. I reasonably expect the patient will require inpatient services that span a period time over 2 midnights. I reasonably expect this patient to be discharged or transferred within 96 hours after admission to the [facility]. Disposition -I would anticipate discharge home with home care versus possibly subacute rehab Primary care physician -Dr. Roberson Hospitalist - Shashi Euceda M.D. - Mortality Measure Prognosis:: Good - Mortality Measure Prognosis:: Good
[2019-07-11] MEDS ORDERED: Ondansetron 4 MG Tab.DIS PO PRN (21:25)
[2019-07-11] MEDS ORDERED: Ondansetron 4 MG/2 ML SDV IV PRN (21:25)
[2019-07-11] MEDS ORDERED: Melatonin 3 MG Tab PO PRN (21:25)
[2019-07-11] MEDS ORDERED: Sodium Chloride 0.9% 1,000 ML IV SCH (21:25)
[2019-07-11] MEDS ORDERED: LORazepam 2 MG/ML SDV IV PRN (21:25)
[2019-07-11] MEDS ORDERED: Albuterol 0.083% 2.5 MG/3 ML Neb Soln NEB PRN (21:25)
[2019-07-11] MEDS ORDERED: Ibuprofen 600 MG Tab PO PRN (21:25)
[2019-07-11] MEDS ORDERED: oxyCODONE 5 MG Tab PO PRN (21:25)
[2019-07-11] MEDS ORDERED: Citalopram 10 MG Tab PO SCH (21:25)
[2019-07-11] MEDS ORDERED: Acetaminophen 325 MG Tab PO PRN (21:25)
[2019-07-11] MEDS: Famotidine 20 MG Tab PO SCH (21:54)
[2019-07-11] MEDS: Simvastatin 20 MG Tab PO SCH (21:54)
[2019-07-11] MEDS: levETIRAcetam 250 MG Tab PO SCH (22:29)
[2019-07-12] MEDS ORDERED: Ciprofloxacin in D5W 400 MG in Premix Bag 1 BAG IV SCH ×2 (09:00)
--- NOTE | 2019-07-12 10:07 | PCM.PN ---
- General Info Date of Service: 07/12/19 Subjective Update: D was admitted last night for management of a suspected urinary tract infection causing confusion and weakness.ar there were no acute events overnight following admission. She is alert but not very interactive and does not really respond to questions other than staring blankly. She appears very comfortable. She has not had significant fevers. Her urine culture is growing a gram- negative julianna. Functional Status: Reports: Pain Controlled, Tolerating Diet - Review of Systems General: Reports: Other (confused) - Patient Data Vitals - Most Recent: Last Vital Signs Temp 35.3 C 07/12/19 07:37 Pulse 90 07/12/19 07:37 Resp 17 07/12/19 07:37 BP 99/49 L 07/12/19 07:37 Pulse Ox 92 L 07/12/19 07:37 Weight - Most Recent: 69.4 kg I&O - Last 24 Hours: Intake & Output 07/11/19 07/12/19 07/12/19 22:59 06:59 14:59 Intake Total 1000 Balance 1000 Lab Results Last 24 Hours: Laboratory Results - last 24 hr 07/11/19 07/11/19 07/11/19 Range/Units 18:26 18:26 18:26 WBC 8.8 (4.5-11.0) K/uL RBC 4.26 (3.30-5.50) M/uL Hgb 13.2 (12.0-15.0) g/dL Hct 41.8 (36.0-48.0) % MCV 98 (80-98) fL MCH 31 (27-31) pg MCHC 32 (32-36) % Plt Count 164 (150-400) K/uL Neut % (Auto) 63 (36-66) % Lymph % (Auto) 23 L (24-44) % Hawkins % (Auto) 13 H (2-6) % Eos % (Auto) 1 L (2-4) % Baso % (Auto) 1 (0-1) % PT 15.0 H (9.5-12.0) sec INR 1.42 H (0.80-1.20) Sodium 144 (140-148) mmol/L Potassium 3.7 (3.6-5.2) mmol/L Chloride 106 (100-108) mmol/L Carbon Dioxide 30 (21-32) mmol/L Anion Gap 8.4 (5.0-14.0) mmol/L BUN 22 H (7-18) mg/dL Creatinine 0.8 (0.6-1.0) mg/dL Est Cr Clr Drug Dosing 56.58 mL/min Estimated GFR (MDRD) > 60 (>60) Glucose 111 H (74-106) mg/dL Lactic Acid (0.4-2.0) mmol/L Calcium 8.7 (8.5-10.1) mg/dL Total Bilirubin 1.3 H (0.2-1.0) mg/dL AST 8 L (15-37) U/L ALT 15 (12-78) U/L Alkaline Phosphatase 82 (46-116) U/L Ammonia (11-32) mmol/L Troponin I < 0.017 (0.000-0.056) ng/mL Total Protein 7.0 (6.4-8.2) g/dL Albumin 3.7 (3.4-5.0) g/dL Globulin 3.3 (2.3-3.5) g/dL Albumin/Globulin Ratio 1.1 L (1.2-2.2) Lipase 59 L (73-393) U/L Urine Color (YELLOW) Urine Appearance (CLEAR) Urine pH (5.0-8.0) Ur Specific [place] (1.008-1.030) Urine Protein (NEGATIVE) mg/dL Urine Glucose (UA) (NEGATIVE) mg/dL Urine Ketones (NEGATIVE) mg/dL Urine Occult Blood (NEGATIVE) Urine Nitrite (NEGATIVE) Urine Bilirubin (NEGATIVE) Urine Urobilinogen (0.2-1.0) EU/dL Ur Leukocyte Esterase (NEGATIVE) Urine RBC (0-5) Urine WBC (0-5) Ur Epithelial Cells Amorphous Sediment Urine Bacteria Urine Mucus 07/11/19 07/11/19 07/11/19 Range/Units 18:26 18:26 18:27 WBC (4.5-11.0) K/uL RBC (3.30-5.50) M/uL Hgb (12.0-15.0) g/dL Hct (36.0-48.0) % MCV (80-98) fL MCH (27-31) pg MCHC (32-36) % Plt Count (150-400) K/uL Neut % (Auto) (36-66) % Lymph % (Auto) (24-44) % Hawkins % (Auto) (2-6) % Eos % (Auto) (2-4) % Baso % (Auto) (0-1) % PT (9.5-12.0) sec INR (0.80-1.20) Sodium (140-148) mmol/L Potassium (3.6-5.2) mmol/L Chloride (100-108) mmol/L Carbon Dioxide (21-32) mmol/L Anion Gap (5.0-14.0) mmol/L BUN (7-18) mg/dL Creatinine (0.6-1.0) mg/dL Est Cr Clr Drug Dosing mL/min Estimated GFR (MDRD) (>60) Glucose (74-106) mg/dL Lactic Acid 1.8 (0.4-2.0) mmol/L Calcium (8.5-10.1) mg/dL Total Bilirubin (0.2-1.0) mg/dL AST (15-37) U/L ALT (12-78) U/L Alkaline Phosphatase (46-116) U/L Ammonia 17 (11-32) mmol/L Troponin I (0.000-0.056) ng/mL Total Protein (6.4-8.2) g/dL Albumin (3.4-5.0) g/dL Globulin (2.3-3.5) g/dL Albumin/Globulin Ratio (1.2-2.2) Lipase (73-393) U/L Urine Color [place] A (YELLOW) Urine Appearance Cloudy A (CLEAR) Urine pH 6.0 (5.0-8.0) Ur Specific [place] 1.025 (1.008-1.030) Urine Protein Negative (NEGATIVE) mg/dL Urine Glucose (UA) Negative (NEGATIVE) mg/dL Urine Ketones Negative (NEGATIVE) mg/dL Urine Occult Blood Small H (NEGATIVE) Urine Nitrite Positive H (NEGATIVE) Urine Bilirubin Negative (NEGATIVE) Urine Urobilinogen 4.0 H (0.2-1.0) EU/dL Ur Leukocyte Esterase Negative (NEGATIVE) Urine RBC 5-10 H (0-5) Urine WBC 0-5 (0-5) Ur Epithelial Cells Many Amorphous Sediment Few Urine Bacteria Moderate Urine Mucus Not seen 07/12/19 07/12/19 07/12/19 Range/Units 06:07 06:07 06:07 WBC 7.9 (4.5-11.0) K/uL RBC 3.87 (3.30-5.50) M/uL Hgb 11.7 L (12.0-15.0) g/dL Hct 37.8 (36.0-48.0) % MCV 98 (80-98) fL MCH 30 (27-31) pg MCHC 31 L (32-36) % Plt Count 152 (150-400) K/uL Neut % (Auto) 62 (36-66) % Lymph % (Auto) 24 (24-44) % Hawkins % (Auto) 11 H (2-6) % Eos % (Auto) 2 (2-4) % Baso % (Auto) 0 (0-1) % PT 16.9 H (9.5-12.0) sec INR 1.61 H (0.80-1.20) Sodium 143 (140-148) mmol/L Potassium 3.8 (3.6-5.2) mmol/L Chloride 109 H (100-108) mmol/L Carbon Dioxide 27 (21-32) mmol/L Anion Gap 10.8 (5.0-14.0) mmol/L BUN 18 (7-18) mg/dL Creatinine 0.6 (0.6-1.0) mg/dL Est Cr Clr Drug Dosing 75.44 mL/min Estimated GFR (MDRD) > 60 (>60) Glucose 110 H (74-106) mg/dL Lactic Acid (0.4-2.0) mmol/L Calcium 8.3 L (8.5-10.1) mg/dL Total Bilirubin (0.2-1.0) mg/dL AST (15-37) U/L ALT (12-78) U/L Alkaline Phosphatase (46-116) U/L Ammonia (11-32) mmol/L Troponin I (0.000-0.056) ng/mL Total Protein (6.4-8.2) g/dL Albumin (3.4-5.0) g/dL Globulin (2.3-3.5) g/dL Albumin/Globulin Ratio (1.2-2.2) Lipase (73-393) U/L Urine Color (YELLOW) Urine Appearance (CLEAR) Urine pH (5.0-8.0) Ur Specific [place] (1.008-1.030) Urine Protein (NEGATIVE) mg/dL Urine Glucose (UA) (NEGATIVE) mg/dL Urine Ketones (NEGATIVE) mg/dL Urine Occult Blood (NEGATIVE) Urine Nitrite (NEGATIVE) Urine Bilirubin (NEGATIVE) Urine Urobilinogen (0.2-1.0) EU/dL Ur Leukocyte Esterase (NEGATIVE) Urine RBC (0-5) Urine WBC (0-5) Ur Epithelial Cells Amorphous Sediment Urine Bacteria Urine Mucus Horacio Results Last 24 Hours: Microbiology 07/11/19 20:07 Urine Culture - Preliminary Urine, Bladder Med Orders - Current: Current Medications Acetaminophen (Tylenol) 650 mg PO Q4H PRN PRN Reason: Pain (Mild 1-3)/fever Albuterol (Proventil Neb Soln) 2.5 mg NEB Q4H PRN PRN Reason: Shortness Of Breath/wheezing Citalopram Hydrobromide (Celexa) 10 mg PO BID [facility] Last Admin: 07/11/19 21:54 Dose: 10 mg Famotidine (Pepcid) 20 mg PO BID [facility] Last Admin: 07/11/19 21:54 Dose: 20 mg Fluoxetine HCl (Prozac) 20 mg PO DAILY [facility] Ciprofloxacin/Dextrose 400 mg/ (Premix) 200 mls @ 200 mls/hr IV Q12H [facility] Last Admin: 07/12/19 10:05 Dose: 200 mls/hr Ibuprofen (Motrin) 600 mg PO Q6H PRN PRN Reason: Pain/Fever Levetiracetam (Keppra) 1,000 mg PO BID [facility] Last Admin: 07/11/19 22:29 Dose: 1,000 mg Lorazepam (Ativan) 1 mg IV Q6H PRN PRN Reason: Nausea/Vomiting Melatonin (Melatonin) 6 mg PO BEDTIME PRN PRN Reason: Insomnia Last Admin: 07/11/19 21:54 Dose: 6 mg Metoprolol Succinate (Toprol Xl) 25 mg PO DAILY [facility] Ondansetron HCl (Zofran Odt) 4 mg PO Q6H PRN PRN Reason: Nausea able to take PO Ondansetron HCl (Zofran) 4 mg IV Q4H PRN PRN Reason: Nausea/Vomiting Oxycodone HCl (Oxycodone) 5 mg PO Q4H PRN PRN Reason: Pain (moderate 4-6) Simvastatin (Zocor) 20 mg PO BEDTIME [facility] Last Admin: 07/11/19 21:54 Dose: 20 mg Warfarin Sodium (Coumadin) 5 mg PO TuFr@1300 JULIETTE Warfarin Sodium (Coumadin) 2.5 mg PO SuMoWeThSa@1300 JULIETTE Discontinued Medications Ciprofloxacin/Dextrose 400 mg/ (Premix) 200 mls @ 200 mls/hr IV ONETIME ONE Stop: 07/11/19 20:51 Last Admin: 07/11/19 20:38 Dose: 200 mls/hr Sodium Chloride (Normal Saline) 1,000 mls @ 125 mls/hr IV ASDIRECTED [facility] Last Admin: 07/12/19 04:27 Dose: 125 mls/hr - Exam Quality Assessment: No: Supplemental Oxygen General: Alert, Cooperative, No Acute Distress. No: Oriented HEENT: Pupils Equal Lungs: Clear to Auscultation, Normal Respiratory Effort Cardiovascular: Regular Rate, Regular Rhythm GI/Abdominal Exam: Soft, No Distention Extremities: No Pedal Edema Psy/Mental Status: Alert. No: Agitated Sepsis Event Note - Evaluation Sepsis Screening Result: No Definite Risk - Focused Exam Vital Signs: Vital Signs Temp Pulse Resp BP Pulse Ox 07/12/19 07:37 35.3 C 90 17 99/49 L 92 L 07/12/19 07:14 92 L 07/12/19 04:25 37.1 C 70 15 106/69 96 07/12/19 01:51 95 Date Exam was Performed: 07/12/19 Time Exam was Performed: 14:35 - Problem List Review Problem List Initiated/Reviewed/Updated: Yes - My Orders Last 24 Hours: My Active Orders 07/12/19 09:30 Up With Assistance [RC] ASDIRECTED 07/12/19 10:10 Sodium Chloride 0.9% [Normal Saline] 1,000 ml IV ASDIRECTED 07/12/19 Breakfast Mechanical Soft Diet [DIET] 07/13/19 05:00 BASIC METABOLIC PANEL,BMP [CHEM] Timed INR,PT,PROTHROMBIN TIME [COAG] Timed - Plan Plan:: ASSESSMENT AND PLAN - Acute Urinary Tract Infection without hematuria-manifestations of confusion and weakness. No evidence for sepsis. Clinically looks pretty good this morning. -Transition to oral antibiotics -Saline lock IV -Follow-up urine culture -Physical therapy for weakness Seizure disorder-no recurrence. -continue Keppra 1000 mg po bid History of Stroke with right side weakness, 90% of speech is gone per - no changes from baseline. -continue home medication Chronic A. Fib-chronically anticoagulated but INR slightly subtherapeutic. -continue home medications -INR sub therapeutic, increased dose to 5mg per [facility] -Coumadin 5 mg po in am -INR in the morning Maintenance issues - - DVT prophylaxis -Coumadin - GI prophylaxis -PPI - Nutrition -regular Disposition -I would anticipate discharge home with home care versus possibly subacute rehab Shashi Euceda M.D.
[2019-07-12] MEDS: Famotidine 20 MG Tab PO SCH ×2 (10:08→20:38)
[2019-07-12] MEDS: FLUoxetine 20 MG Cap PO SCH (10:08)
[2019-07-12] MEDS: levETIRAcetam 250 MG Tab PO SCH ×2 (10:08→20:38)
[2019-07-12] MEDS ORDERED: Sodium Chloride 0.9% 1,000 ML IV SCH (10:10)
[2019-07-12] MEDS: Metoprolol Succinate 25 MG Tab.ER PO SCH (10:13)
[2019-07-12] MEDS ORDERED: Warfarin 2.5 MG Tab PO SCH (13:00)
[2019-07-12] MEDS ORDERED: Sodium Chloride 0.9% 500 ML IV SCH (14:30)
[2019-07-12] MEDS: Sodium Chloride 0.9% 500 ML IV ONE ×2 (14:31→14:32)
[2019-07-12] MEDS: Ciprofloxacin 500 MG Tab PO SCH (20:38)
[2019-07-12] MEDS: Simvastatin 20 MG Tab PO SCH (20:39)
[2019-07-13] MEDS ORDERED: Potassium Chloride 20 MEQ Tab.ER PO ONE (09:00)
[2019-07-13] MEDS: Metoprolol Succinate 25 MG Tab.ER PO SCH (09:00)
[2019-07-13] MEDS: levETIRAcetam 250 MG Tab PO SCH (09:29)
[2019-07-13] MEDS: Famotidine 20 MG Tab PO SCH (09:29)
[2019-07-13] MEDS: FLUoxetine 20 MG Cap PO SCH (09:29)
[2019-07-13] MEDS: Ciprofloxacin 500 MG Tab PO SCH (09:29)
[2019-07-13 10:47] VITALS: BP 115/66; PULSE 70
--- NOTE | 2019-07-13 10:48 | PCM.DCSUM1 ---
Discharge Summary - Hospital Course Brief History: 79-year-old female with history of cerebrovascular disease, Alzheimer's dementia without behavioral disturbance and chronic atrial fibrillation who presented with weakness and confusion. She was admitted for management of acute cystitis. Diagnosis: Stroke: No - Discharge Data Discharge Date: 07/13/19 Discharge Disposition: Home, Self-Care 01 Condition: Good - Referral to Home Health Primary Care Physician: Huber Roberson MD - Discharge Diagnosis/Problem(s) (1) Acute cystitis without hematuria SNOMED Code(s): 81431404 ICD Code: N30.00 - ACUTE CYSTITIS WITHOUT HEMATURIA Status: Acute (2) History of stroke with residual deficit SNOMED Code(s): 272404096 ICD Code: I69.30 - UNSPECIFIED SEQUELAE OF CEREBRAL INFARCTION Status: Chronic Priority: Low (3) Seizure, epileptic SNOMED Code(s): 66834972 ICD Code: G40.909 - EPILEPSY, UNSP, NOT INTRACTABLE, WITHOUT STATUS EPILEPTICUS Status: Chronic Priority: High Qualifiers: Epilepsy type: unspecified Intractability: not intractable Status epilepticus: without status epilepticus Qualified Code(s): G40.909 - Epilepsy , unspecified, not intractable, without status epilepticus (4) Dementia SNOMED Code(s): 18433613 ICD Code: F03.90 - UNSPECIFIED DEMENTIA WITHOUT BEHAVIORAL DISTURBANCE Status: Chronic Priority: High Qualifiers: Dementia type: Alzheimer's disease Dementia behavioral disturbance: without behavioral disturbance - Patient Summary/Data Consults: Consultations 07/11/19 21:22 Consult to Physical Therapy [PT Evaluation and Treatment] [CONS] Routine Please Evaluate and Treat. PT Reason for Consult: Strengthening This query below is only for informational purposes and is not editable. Admission Diagnosis/Problem: Urinary tract infection Hospital Course: Harriet presented to the emergency room with weakness and confusion. Work-up in the emergency room was suggestive of a urinary tract and action. She was started on ciprofloxacin and IV fluids and admitted to the hospital for further management. By the morning after admission she was doing a fair amount better. As the day progressed she did have an episode of somnolence and decreased blood pressure. This responded well to a fluid bolus. Same antibiotics were continued over the next 24 hours. On the morning of discharge her urine culture has returned with an E. coli that is sensitive to most antibiotics. Clinically she is doing well and seems to be back to her usual self. I believe she is safe for discharge home at this time and her is in agreement with the plan. He is her primary caregiver. I have elected to utilize cephalexin for outpatient antibiotic management. She will need 3 additional days of antibiotic therapy. No other medication changes were made. - Patient Instructions Diet: Regular Diet as Tolerated Activity: As Tolerated Showering/Bathing: May Shower Notify Provider of: Fever, Increased Pain, Nausea and/or Vomiting Other/Special Instructions: 1. You were in the hospital for management of a urinary tract infection caused by E. coli. Your condition is improving with antibiotic therapy. I do recommend ongoing antibiotic therapy with cephalexin ( Keflex). Please take 500 mg twice daily for 6 doses. Your first dose outside of the hospital will be due tonight around 9 PM. 2. Please continue your other medications as previously prescribed. 3. Please drink plenty of water with the goal of keeping your urine either clear or light yellow in color. This will help reduce the risk of future urinary tract infections. - Discharge Plan *PRESCRIPTION DRUG MONITORING PROGRAM REVIEWED*: Not Applicable *COPY OF PRESCRIPTION DRUG MONITORING REPORT IN PATIENT ZENOBIA: Not Applicable Prescriptions/Med Rec: cephALEXin [Keflex] 500 mg PO BID #6 cap Home Medications: Home Meds Famotidine [Take Home: Famotidine 20 MG, 3 Tab Pack] 20 mg PO BID 02/18/16 [ History] Metoprolol Succinate [Toprol XL] 25 mg PO DAILY 02/18/16 [History] Simvastatin 20 mg PO BEDTIME 02/18/16 [History] Warfarin [Coumadin] 5 mg PO ASDIRECTED 02/18/16 [History] levETIRAcetam [Keppra] 1,000 mg PO BID 02/18/16 [History] FLUoxetine HCl [Fluoxetine HCl] 20 mg PO DAILY 07/11/19 [History] cephALEXin [Keflex] 500 mg PO BID #6 cap 07/13/19 [Rx] Oxygen Therapy Mode: Room Air Patient Handouts: Urinary Tract Infection, Adult, Cephalexin tablets or capsules Referrals: Huber Roberson MD [Primary Care Provider] - (Follow-up if symptoms do not continue to get better or if they get worse) - Discharge Summary/Plan Comment DC Time >30 min.: No - Patient Data Vitals - Most Recent: Last Vital Signs Temp 36.2 C 07/13/19 07:00 Pulse 70 07/13/19 09:00 Resp 16 07/13/19 07:00 BP 115/66 07/13/19 09:00 Pulse Ox 95 07/13/19 07:00 Weight - Most Recent: 69.4 kg I&O - Last 24 hours: Intake & Output 07/12/19 07/13/19 07/13/19 22:59 06:59 14:59 Intake Total 540 Balance 540 Lab Results - Last 24 hrs: Laboratory Results - last 24 hr 07/13/19 07/13/19 Range/Units 04:29 04:29 PT 18.9 H (9.5-12.0) sec INR 1.81 H (0.80-1.20) Sodium 147 (140-148) mmol/L Potassium 3.5 L (3.6-5.2) mmol/L Chloride 112 H (100-108) mmol/L Carbon Dioxide 27 (21-32) mmol/L Anion Gap 11.5 (5.0-14.0) mmol/L BUN 15 (7-18) mg/dL Creatinine 0.8 (0.6-1.0) mg/dL Est Cr Clr Drug Dosing 56.80 mL/min Estimated GFR (MDRD) > 60 (>60) Glucose 118 H (74-106) mg/dL Calcium 8.4 L (8.5-10.1) mg/dL KALEB Results - Last 24 hrs: Microbiology 07/11/19 20:07 Urine Culture - Final Urine, Bladder Escherichia Coli Med Orders - Current: Current Medications Acetaminophen (Tylenol) 650 mg PO Q4H PRN PRN Reason: Pain (Mild 1-3)/fever Albuterol (Proventil Neb Soln) 2.5 mg NEB Q4H PRN PRN Reason: Shortness Of Breath/wheezing Ciprofloxacin (Ciprofloxacin Hcl) 500 mg PO BID [facility] Last Admin: 07/13/19 09:29 Dose: 500 mg Famotidine (Pepcid) 20 mg PO BID [facility] Last Admin: 07/13/19 09:29 Dose: 20 mg Fluoxetine HCl (Prozac) 20 mg PO DAILY [facility] Last Admin: 07/13/19 09:29 Dose: 20 mg Ibuprofen (Motrin) 600 mg PO Q6H PRN PRN Reason: Pain/Fever Levetiracetam (Keppra) 1,000 mg PO BID [facility] Last Admin: 07/13/19 09:29 Dose: 1,000 mg Lorazepam (Ativan) 1 mg IV Q6H PRN PRN Reason: Nausea/Vomiting Melatonin (Melatonin) 6 mg PO BEDTIME PRN PRN Reason: Insomnia Last Admin: 07/11/19 21:54 Dose: 6 mg Metoprolol Succinate (Toprol Xl) 25 mg PO DAILY [facility] Last Admin: 07/13/19 09:00 Dose: 25 mg Ondansetron HCl (Zofran Odt) 4 mg PO Q6H PRN PRN Reason: Nausea able to take PO Ondansetron HCl (Zofran) 4 mg IV Q4H PRN PRN Reason: Nausea/Vomiting Oxycodone HCl (Oxycodone) 5 mg PO Q4H PRN PRN Reason: Pain (moderate 4-6) Simvastatin (Zocor) 20 mg PO BEDTIME [facility] Last Admin: 07/12/19 20:39 Dose: 20 mg Warfarin Sodium (Coumadin) 5 mg PO TuFr@1300 [facility] Warfarin Sodium (Coumadin) 2.5 mg PO SuMoWeThSa@1300 [facility] Last Admin: 07/12/19 13:46 Dose: 2.5 mg Discontinued Medications Citalopram Hydrobromide (Celexa) 10 mg PO BID [facility] Last Admin: 07/11/19 21:54 Dose: 10 mg Ciprofloxacin/Dextrose 400 mg/ (Premix) 200 mls @ 200 mls/hr IV ONETIME ONE Stop: 07/11/19 20:51 Last Admin: 07/11/19 20:38 Dose: 200 mls/hr Ciprofloxacin/Dextrose 400 mg/ (Premix) 200 mls @ 200 mls/hr IV Q12H [facility] Last Admin: 07/12/19 10:05 Dose: 200 mls/hr Sodium Chloride (Normal Saline) 1,000 mls @ 125 mls/hr IV ASDIRECTED [facility] Last Admin: 07/12/19 04:27 Dose: 125 mls/hr Sodium Chloride (Normal Saline) 1,000 mls @ 75 mls/hr IV ASDIRECTED [facility] Sodium Chloride (Normal Saline) 500 mls @ 500 mls/hr IV ONETIME ONE Stop: 07/12/19 15:29 Last Admin: 07/12/19 14:32 Dose: Not Given Potassium Chloride (Klor-Con M20) 40 meq PO ONETIME ONE Stop: 07/13/19 09:01 Last Admin: 07/13/19 09:32 Dose: 40 meq - Exam Quality Assessment: Denies: Supplemental Oxygen General: Reports: Alert, Oriented, Cooperative, No Acute Distress Lungs: Reports: Normal Respiratory Effort GI/Abdominal Exam: Soft, No Distention Extremities: No Pedal Edema Psy/Mental Status: Reports: Alert, Normal Affect
[2019-07-13] MEDS ORDERED: Warfarin 5 MG Tab PO SCH (13:00)
== END 2019-07-13 11:55 | disposition home or self-care (01) | DRG 690 ==
LOC: JP.ED 17:36 → JP.MS 20:29
PROVIDERS: ADMIT Internal Medicine; ATTEND Internal Medicine
DX: N39.0 Urinary tract infection, site not specified (principal); D68.9 Coagulation defect, unspecified; N30.01 Acute cystitis with hematuria; I48.20 Chronic atrial fibrillation, unspecified; I69.351 Hemiplegia and hemiparesis following cerebral infarction affecting right dominant side; R32 Unspecified urinary incontinence; E78.00 Pure hypercholesterolemia, unspecified; K21.9 Gastro-esophageal reflux disease without esophagitis; G30.9 Alzheimer's disease, unspecified; I69.328 Other speech and language deficits following cerebral infarction; F02.80 Dementia in other diseases classified elsewhere, unspecified severity, without behavioral disturbance, psychotic disturbance, mood disturbance, and anxiety; G43.909 Migraine, unspecified, not intractable, without status migrainosus; F32.9 Major depressive disorder, single episode, unspecified; Z96.649 Presence of unspecified artificial hip joint; G40.909 Epilepsy, unspecified, not intractable, without status epilepticus; Z66 Do not resuscitate; R79.1 Abnormal coagulation profile; Z79.01 Long term (current) use of anticoagulants; Z90.710 Acquired absence of both cervix and uterus; Z79.899 Other long term (current) drug therapy; Z87.891 Personal history of nicotine dependence; Z88.1 Allergy status to other antibiotic agents
CPT/HCPCS: 36415; 70450; 80048; 80053; 80177; 81001; 82140; 83605; 83690; 84484; 85025; 85610; 87086; 87088; 87186; 93005; 93010; 94762; 97161-GP; 99284; 99285-25; A9270-GY; J0744; J7030; J7040

== ENCOUNTER 2019-07-31 13:40 | Emergency (ER) | payer MEDICARE, BC ==
[2019-07-31 13:47] VITALS: BP 133/78; PULSE 107
--- NOTE | 2019-07-31 14:14 | EDM.PDOC ---
ED HPI GENERAL MEDICAL PROBLEM - General Chief Complaint: General Stated Complaint: [facility] Time Seen by Provider: 07/31/19 13:50 Source of Information: Reports: Patient, EMS, Family History Limitations: Reports: No Limitations (A good history is obtainable from the ) - History of Present Illness INITIAL COMMENTS - FREE TEXT/NARRATIVE: 79-year-old female who was suffered from strokes in the past and has expressive aphasia with mood lability was getting ready to go to lunch with her when she slipped out of her wheelchair onto the floor. She started crying and complaining of lower extremity pain, he could not get her up so he called the ambulance. They also said that she was complaining of leg pain when they arrived but now she seems to have no symptoms. She has an extremely hard time expressing her symptoms and feelings, cries a lot and has chronic depression. She can nod yes or no but is otherwise basically aphasic. Onset: Sudden Duration: Hour(s): (Within the last hour) Location: Reports: Lower Extremity, Left, Lower Extremity, Right Quality: Reports: Ache Worsens with: Reports: Other (Unsure) Associated Symptoms: Reports: Confusion, Weakness, Other (Treated for recent UTI ). Denies: Nausea/Vomiting - Related Data Allergies Allergy/AdvReac Type Severity Reaction Status Date / Time amoxicillin Allergy Cannot Verified 07/31/19 13:43 Remember ampicillin Allergy Cannot Verified 07/31/19 13:43 Remember Home Meds: Home Meds Metoprolol Succinate [Toprol XL] 25 mg PO DAILY 02/18/16 [History] Simvastatin 20 mg PO BEDTIME 02/18/16 [History] Warfarin [Coumadin] 5 mg PO ASDIRECTED 02/18/16 [History] levETIRAcetam [Keppra] 1,000 mg PO BID 02/18/16 [History] FLUoxetine HCl [Fluoxetine HCl] 20 mg PO DAILY 07/11/19 [History] Ranitidine HCl [Ranitidine] 150 mg PO BID 07/31/19 [History] Past Medical History Cardiovascular History: Reports: Afib, High Cholesterol Gastrointestinal History: Reports: Chronic Diarrhea, GERD Genitourinary History: Reports: Urinary Incontinence [facility]ANQUET STEWARD History: Reports: 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 History: Reports: Fracture, Other (See Below) Other 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 History: r elbow stress fx Neurological History: Reports: CVA, Migraines, Seizure, Speech Problems Other Neuro History: hemiplegia right side Psychiatric History: Reports: Depression, Mood Swings Hematologic History: Reports: Anticoagulation Therapy - Infectious Disease History Infectious Disease History: Reports: Chicken Pox, Measles, Mumps - Past Surgical History Female Surgical History: Reports: Breast Biopsy, Hysterectomy 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 Surgical History: Reports: Hip Replacement, Other (See Below) Other 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 Surgeries/Procedures:: partial hip replacement to fix femur neck fracture Social & Family History - Family History Family Medical History: Unobtainable - Tobacco Use Smoking Status *Q: Never Smoker - Caffeine Use Caffeine Use: Reports: None Caffeine Use Comment: rarely - Living Situation & Occupation Living situation: Reports: (lives with , will be 59 years next month, had 4 children, retired, lives [place] Occupation: Disabled ED ROS GENERAL - Review of Systems Review Of Systems: See Below Constitutional: Reports: Malaise. Denies: Fever, Chills Respiratory: Denies: Shortness of Breath Cardiovascular: Denies: Chest Pain GI/Abdominal: Denies: Abdominal Pain 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: Reports: Leg Pain Skin: Denies: Bruising Neurological: Reports: Weakness Psychiatric: Reports: Depression ED EXAM, GENERAL - Physical Exam Exam: See Below Exam Limited By: Other (Patient has difficulty expressing her feelings and is aphasic) General Appearance: Alert, No Apparent Distress Eye Exam: Bilateral Eye: EOMI Head: Atraumatic Neck: Supple, Non-Tender Respiratory/Chest: No Respiratory Distress Extremities: Other (I can move both lower extremities passively including internal and external rotation of the hips without any apparent pain. There is no obvious bruising, deformity or evidence of trauma to the lower extremities) Course - Vital Signs Last Recorded V/S: Last Vital Signs Temp 96.4 F 07/31/19 14:35 Pulse 107 H 07/31/19 14:35 Resp 18 07/31/19 14:35 BP 133/78 07/31/19 14:35 Pulse Ox 95 07/31/19 14:35 - Orders/Labs/Meds Orders: Active Orders 24 hr Category Date Time Status Consult to Case Management/Aerial Photograph Interpreter [CONS] Cons 07/31/19 14:31 Active Routine - Re-Assessments/Exams Free Text/Narrative Re-Assessment/Exam: 07/31/19 14:12 Patient is now denying any pain. With the assistance of nurses we stood her up and she could bear weight without difficulty. We will find her something to eat and while she is eating social organization professor can visit with the about getting some help at home but no further workup is needed. 07/31/19 14:30 Home established physical therapy, Occupational Therapy and home health assistance with daily cares would be very worthwhile for this patient. A consultation will be made hopefully with the assistance of her primary provider. 07/31/19 14:58 Patient ate a meal and remained comfortable and basically asymptomatic so was discharged home. Departure - Departure Time of Disposition: 15:20 Disposition: Home, Self-Care 01 Clinical Impression: Weakness generalized Fall from wheelchair Qualifiers: Encounter type: initial encounter Qualified Code(s): W05.0XXA - Fall from non- moving wheelchair, initial encounter - Discharge Information Instructions: Weakness, [id number] Referrals: PCP,None [Primary Care Provider] - (Rhea Avina homecare visit scheduled for at 1pm.) Forms: ED Department Discharge Care Plan Goals: Continue any current medications, diet and activity as tolerated and consider consultation advice from your home health evaluations in the near future. Sepsis Event Note - Focused Exam Vital Signs: Vital Signs Temp Pulse Resp BP Pulse Ox 07/31/19 14:35 96.4 F 107 H 18 133/78 95 07/31/19 13:45 96.4 F 107 H 18 133/78 95 Date Exam was Performed: 07/31/19 Time Exam was Performed: 16:11 - My Orders Last 24 Hours: My Active Orders 07/31/19 14:31 Consult to Case Management/Aerial Photograph Interpreter [CONS] Routine - Assessment/Plan Last 24 Hours: My Active Orders 07/31/19 14:31 Consult to Case Management/Aerial Photograph Interpreter [CONS] Routine
== END 2019-07-31 15:19 | disposition home or self-care (01) ==
LOC: JP.ED 13:40
DX: R53.1 Weakness (principal); I48.91 Unspecified atrial fibrillation; E78.00 Pure hypercholesterolemia, unspecified; F32.9 Major depressive disorder, single episode, unspecified; K21.9 Gastro-esophageal reflux disease without esophagitis; G40.909 Epilepsy, unspecified, not intractable, without status epilepticus; Z88.0 Allergy status to penicillin; Z79.01 Long term (current) use of anticoagulants; Z79.899 Other long term (current) drug therapy; Z86.73 Personal history of transient ischemic attack (TIA), and cerebral infarction without residual deficits; W05.0XXA Fall from non-moving wheelchair, initial encounter
CPT/HCPCS: 99282; 99285

== ENCOUNTER 2019-08-09 15:47 | Observation (INO) | payer MEDICARE, BC ==
--- NOTE | 2019-08-09 17:21 | EDM.PDOC ---
ED HPI GENERAL MEDICAL PROBLEM - General Chief Complaint: General Stated Complaint: MEDICAL Time Seen by Provider: 08/09/19 17:05 Source of Information: Reports: Family, Old Records, RN History Limitations: Reports: Altered Mental Status - History of Present Illness INITIAL COMMENTS - FREE TEXT/NARRATIVE: 79 yo female who has been cared for at home by her since a stroke several yrs ago and who is chronically incontinent is brought in for decreased alertness since awakening this morning. Has acted like this in the past with UTI 's. Has had several normal BM's today. No coughing or fever. No recent head injury. No vomiting. Onset: Today Onset Date: 08/09/19 Onset Time: 08:00 Duration: Hour(s):, Constant Location: Reports: Generalized Quality: Reports: Other (unknown, patient nonverbal) Severity: Moderate Improves with: Reports: None Worsens with: Reports: Other (uncertain) Context: Reports: Other (see HPI) Associated Symptoms: Reports: Confusion (chronic), Malaise, Weakness. 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: Other (see below) (none) Unknown Pain Score (Numeric/FACES): 0 - Related Data Allergies Allergy/AdvReac Type Severity Reaction Status Date / Time amoxicillin Allergy Cannot Verified 08/09/19 16:57 Remember ampicillin Allergy Cannot Verified 08/09/19 16:57 Remember Home Meds: Home Meds Metoprolol Succinate [Toprol XL] 25 mg PO DAILY 02/18/16 [History] Simvastatin 20 mg PO BEDTIME 02/18/16 [History] Warfarin [Coumadin] 5 mg PO ASDIRECTED 02/18/16 [History] levETIRAcetam [Keppra] 1,000 mg PO BID 02/18/16 [History] FLUoxetine HCl [Fluoxetine HCl] 20 mg PO DAILY 07/11/19 [History] Ranitidine HCl [Ranitidine] 150 mg PO BID 07/31/19 [History] Past Medical History HEENT History: Reports: Impaired Vision Cardiovascular History: Reports: Afib, High Cholesterol Gastrointestinal History: Reports: Chronic Diarrhea, GERD Genitourinary History: Reports: Urinary Incontinence 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: 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 History: Reports: Fracture, Other (See Below) Other 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 History: r elbow stress fx Neurological History: Reports: CVA, Migraines, Seizure, Speech Problems Other Neuro History: hemiplegia right side Psychiatric History: Reports: Depression, Mood Swings Hematologic History: Reports: Anticoagulation Therapy - Infectious Disease History Infectious Disease History: Reports: Chicken Pox - Past Surgical History Female Surgical History: Reports: Breast Biopsy, Hysterectomy 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 Surgical History: Reports: Hip Replacement, Other (See Below) Other 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 Surgeries/Procedures:: partial hip replacement to fix femur neck fracture Social & Family History - Family History Family Medical History: Unobtainable - Tobacco Use Smoking Status *Q: Never Smoker Second Hand Smoke Exposure: No - Caffeine Use Caffeine Use: Reports: Coffee Caffeine Use Comment: rarely - Recreational Drug Use Recreational Drug Use: No - Living Situation & Occupation Living situation: Reports: (lives with , will be 59 years next month, had 4 children, retired, lives [place] Occupation: Disabled ED ROS GENERAL - Review of Systems Review Of Systems: See Below Constitutional: Reports: Malaise, Weakness HEENT: Reports: No Symptoms Respiratory: Reports: No Symptoms Cardiovascular: Reports: No Symptoms GI/Abdominal: Reports: Stool Incontinence (chronic) : Reports: Incontinence (chronic) 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: Reports: No Symptoms Skin: Reports: No Symptoms Neurological: Reports: Trouble Speaking (chronic since CVA), Difficulty Walking (chronic), Other (less alert today) Psychiatric: Reports: No Symptoms ED EXAM, GENERAL - Physical Exam Exam: See Below Exam Limited By: No Limitations General Appearance: WD/WN, No Apparent Distress, Lethargic, Obtunded Eye Exam: Bilateral Eye: Normal Inspection Ears: Normal External Exam, Normal Canal, Hearing Grossly Normal, Normal TMs Ear Exam: Bilateral Ear: Auricle Normal, Canal Normal, TM normal Nose: Normal Inspection, No Blood Throat/Mouth: Normal Inspection, Normal Lips, Normal Oropharynx, Normal Voice, No Airway Compromise Head: Atraumatic, Normocephalic Neck: Normal Inspection Respiratory/Chest: No Respiratory Distress, Lungs Clear, Normal Breath Sounds, No Accessory Muscle Use Cardiovascular: Regular Rate, Rhythm, No Edema GI/Abdominal: Normal Bowel Sounds, Soft, Non-Tender, No Distention, Pelvis Stable. No: Distended, Guarding, Rigid, Rebound, Tender, Hernia Extremities: Normal Inspection, Normal Range of Motion, Non-Tender, No Pedal Edema Neurological: CN II-XII Intact, No Motor/Sensory Deficits, Inattentive. No: Alert, Oriented, Normal Cognition, Sensory/Motor Deficit Psychiatric: Flat Affect Skin Exam: Warm, Dry, Intact, Normal Color, No Rash Course - Vital Signs Last Recorded V/S: Last Vital Signs Temp 35.8 C L 08/09/19 16:55 Pulse 91 08/09/19 17:42 Resp 14 08/09/19 16:55 BP 108/53 L 08/09/19 17:42 Pulse Ox 99 08/09/19 16:55 - Orders/Labs/Meds Orders: Active Orders 24 hr Category Date Time Status Head wo Cont [CT] Stat Exams 08/09/19 17:46 Taken NS + KCl 20mEq/L [Normal Saline with 20 mEq KCl] 1,000 Med 08/09/19 18:00 Active ml IV ASDIRECTED Medication Orders Potassium Chloride/Sodium Chloride (Normal Saline With 20 Meq Kcl) 1,000 mls @ 1,000 mls/hr IV ASDIRECTED JULIETTE Last Admin: 08/09/19 18:39 Dose: 1,000 mls/hr Labs: Laboratory Tests 08/09/19 08/09/19 08/09/19 Range/Units 16:52 16:52 16:52 WBC 8.3 (4.5-11.0) K/uL RBC 4.21 (3.30-5.50) M/uL Hgb 12.8 (12.0-15.0) g/dL Hct 41.7 (36.0-48.0) % MCV 99 H (80-98) fL MCH 30 (27-31) pg MCHC 31 L (32-36) % Plt Count 152 (150-400) K/uL PT 28.1 H (9.5-12.0) sec INR 2.76 H (0.80-1.20) Sodium 153 H (140-148) mmol/L Potassium 3.4 L (3.6-5.2) mmol/L Chloride 114 H (100-108) mmol/L Carbon Dioxide 29 (21-32) mmol/L Anion Gap 13.4 (5.0-14.0) mmol/L BUN 23 H D (7-18) mg/dL Creatinine 0.9 (0.6-1.0) mg/dL Est Cr Clr Drug Dosing 48.48 mL/min Estimated GFR (MDRD) > 60 (>60) Glucose 94 (74-106) mg/dL Calcium 8.8 (8.5-10.1) mg/dL Troponin I < 0.017 (0.000-0.056) ng/mL Urine Color (YELLOW) Urine Appearance (CLEAR) Urine pH (5.0-8.0) Ur Specific [place] (1.008-1.030) Urine Protein (NEGATIVE) mg/dL Urine Glucose (UA) (NEGATIVE) mg/dL Urine Ketones (NEGATIVE) mg/dL Urine Occult Blood (NEGATIVE) Urine Nitrite (NEGATIVE) Urine Bilirubin (NEGATIVE) Urine Urobilinogen (0.2-1.0) EU/dL Ur Leukocyte Esterase (NEGATIVE) Urine RBC (0-5) Urine WBC (0-5) Ur Epithelial Cells Amorphous Sediment Urine Bacteria Urine Mucus 08/09/19 Range/Units 16:53 WBC (4.5-11.0) K/uL RBC (3.30-5.50) M/uL Hgb (12.0-15.0) g/dL Hct (36.0-48.0) % MCV (80-98) fL MCH (27-31) pg MCHC (32-36) % Plt Count (150-400) K/uL PT (9.5-12.0) sec INR (0.80-1.20) Sodium (140-148) mmol/L Potassium (3.6-5.2) mmol/L Chloride (100-108) mmol/L Carbon Dioxide (21-32) mmol/L Anion Gap (5.0-14.0) mmol/L BUN (7-18) mg/dL Creatinine (0.6-1.0) mg/dL Est Cr Clr Drug Dosing mL/min Estimated GFR (MDRD) (>60) Glucose (74-106) mg/dL Calcium (8.5-10.1) mg/dL Troponin I (0.000-0.056) ng/mL Urine Color [place] A (YELLOW) Urine Appearance Cloudy A (CLEAR) Urine pH 6.0 (5.0-8.0) Ur Specific [place] 1.025 (1.008-1.030) Urine Protein Trace H (NEGATIVE) mg/dL Urine Glucose (UA) Negative (NEGATIVE) mg/dL Urine Ketones Negative (NEGATIVE) mg/dL Urine Occult Blood Small H (NEGATIVE) Urine Nitrite Negative (NEGATIVE) Urine Bilirubin Small H (NEGATIVE) Urine Urobilinogen 1.0 (0.2-1.0) EU/dL Ur Leukocyte Esterase Negative (NEGATIVE) Urine RBC 5-10 H (0-5) Urine WBC 0-5 (0-5) Ur Epithelial Cells Not seen Amorphous Sediment Many Urine Bacteria Few Urine Mucus Few Meds: Medications Generic Name Dose Route Start Last Admin Trade Name Freq PRN Reason Stop Dose Admin Potassium Chloride/Sodium Chloride 1,000 mls @ 1,000 mls/hr 08/09/19 18:00 18:39 Normal Saline With 20 Meq Kcl IV 1,000 mls/hr ASDIRECTED JULIETTE Administration Discontinued Medications Generic Name Dose Route Start Last Admin Trade Name Freq PRN Reason Stop Dose Admin Midazolam HCl 3 mg 08/09/19 18:12 08/09/19 18:38 Versed 1 Mg/Ml IVPUSH 08/09/19 18:13 Not Given ONETIME ONE - Radiology Interpretation Free Text/Narrative:: Head CT without contrast- CT Results Date: 08/09/19 Departure - Departure Time of Disposition: 19:05 Disposition: Refer to Observation Condition: Fair Clinical Impression: Mild dehydration, Hypernatremia, Hypokalemia - Discharge Information *PRESCRIPTION DRUG MONITORING PROGRAM REVIEWED*: No *COPY OF PRESCRIPTION DRUG MONITORING REPORT IN PATIENT ZENOBIA: No Referrals: PCP,None [Primary Care Provider] - Forms: ED Department Discharge Sepsis Event Note - Evaluation Sepsis Screening Result: No Definite Risk - Focused Exam Vital Signs: Vital Signs Temp Pulse Resp BP Pulse Ox 08/09/19 17:42 91 108/53 L 08/09/19 17:22 67 117/63 08/09/19 16:55 35.8 C L 74 14 95/57 L 99 08/09/19 16:38 35.8 C L 74 14 95/57 L 99 Date Exam was Performed: 08/09/19 Time Exam was Performed: 18:47 - My Orders Last 24 Hours: My Active Orders 08/09/19 17:46 Head wo Cont [CT] Stat 08/09/19 18:00 NS + KCl 20mEq/L [Normal Saline with 20 mEq KCl] 1,000 ml IV ASDIRECTED - Assessment/Plan Last 24 Hours: My Active Orders 08/09/19 17:46 Head wo Cont [CT] Stat 08/09/19 18:00 NS + KCl 20mEq/L [Normal Saline with 20 mEq KCl] 1,000 ml IV ASDIRECTED
[2019-08-09] MEDS ORDERED: NS + KCl 20mEq/L 1,000 ML IV SCH (18:00)
[2019-08-09] MEDS ORDERED: Midazolam 1 MG/ML 2 ML SDV IVPUSH ONE (18:12)
--- NOTE | 2019-08-09 18:54 | CRLCT ---
INDICATION: Decreased LOC, history of CVA TECHNIQUE: CT head without contrast. COMPARISON: 07/11/2019 FINDINGS: CSF spaces: Within normal limits for age. Brain parenchyma: The roberson-white differentiation is normal. No sign of mass, hemorrhage, or midline shift. Periventricular white matter changes consistent chronic microvascular disease. Diffuse volume loss. Changes of encephalomalacia left temporal parietal region. Skull base and calvarium: The visualized paranasal sinuses and mastoid air cells demonstrate no acute or significant findings. The visualized orbits are grossly unremarkable. No skull fractures. IMPRESSION: No acute intracranial abnormalities. Periventricular white matter changes consistent chronic microvascular disease. Diffuse volume loss. Probable changes of encephalomalacia left temporal parietal region. Please note that all CT scans at this facility use dose modulation, iterative reconstruction, and/or weight-based dosing when appropriate to reduce radiation dose to as low as reasonably achievable. Dictated by Huber Garcia MD @ Aug 09 2019 6:42PM Signed by Dr. Huber Garcia @ Aug 09 2019 6:53PM
--- NOTE | 2019-08-09 20:04 | PCM.HP.2 ---
H&P History of Present Illness - General Date of Service: 08/09/19 Admit Problem/Dx: Admission Diagnosis/Problem Admission Diagnosis/Problem Hypernatremia Source of Information: Family (), Provider, RN History Limitations: Reports: Altered Mental Status (hx of CVA with right sided impairment, non-verbal.), Physical Impairment (hx of CVA, right sided weakness, non-verbal.) - History of Present Illness Initial Comments - Free Text/Narative: chief complaint: weakness, sleeping more. 79 yo female who has been cared for at home by her since a stroke several yrs ago and who is chronically incontinent is brought in for decreased alertness since awakening this morning. Has acted like this in the past with UTI 's. Has had several normal BM's today. No coughing or fever. No recent head injury. No vomiting. Onset of Symptoms: Reports: Today Duration of Symptoms: Reports: Getting Worse Location: Reports: Generalized, Other ( reports its been a rough year. She was in hospital last month for UTI and weakness. reports last night she was restless thrashing about, they both didnt get any sleep. today has been sleeping more. she is weaker, difficult to walk with walker, getting in and out of the bed.) Quality: Reports: Same as Previous Episode Improves with: Reports: None Worsens with: Reports: Movement Associated Symptoms: Reports: Weakness Unknown Pain Score (Numeric/FACES): 0 - Related Data Allergies/Adverse Reactions: Allergies Allergy/AdvReac Type Severity Reaction Status Date / Time amoxicillin Allergy Cannot Verified 08/09/19 16:57 Remember ampicillin Allergy Cannot Verified 08/09/19 16:57 Remember Home Medications: Home Meds Metoprolol Succinate [Toprol XL] 25 mg PO DAILY 02/18/16 [History] Simvastatin 20 mg PO BEDTIME 02/18/16 [History] Warfarin [Coumadin] 5 mg PO ASDIRECTED 02/18/16 [History] levETIRAcetam [Keppra] 1,000 mg PO BID 02/18/16 [History] FLUoxetine HCl [Fluoxetine HCl] 20 mg PO DAILY 07/11/19 [History] Ranitidine HCl [Ranitidine] 150 mg PO BID 07/31/19 [History] Past Medical History HEENT History: Reports: Impaired Vision Cardiovascular History: Reports: Afib, High Cholesterol Gastrointestinal History: Reports: Chronic Diarrhea, GERD Genitourinary History: Reports: Urinary Incontinence 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: 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 History: Reports: Fracture, Other (See Below) Other 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 History: r elbow stress fx Neurological History: Reports: CVA, Migraines, Seizure, Speech Problems Other Neuro History: hemiplegia right side Psychiatric History: Reports: Depression, Mood Swings Hematologic History: Reports: Anticoagulation Therapy - Infectious Disease History Infectious Disease History: Reports: Chicken Pox - Past Surgical History Female Surgical History: Reports: Breast Biopsy, Hysterectomy 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 Surgical History: Reports: Hip Replacement, Other (See Below) Other 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 Surgeries/Procedures:: partial hip replacement to fix femur neck fracture Social & Family History - Family History Family Medical History: Unobtainable - Tobacco Use Smoking Status *Q: Never Smoker Second Hand Smoke Exposure: No - Caffeine Use Caffeine Use: Reports: Coffee Caffeine Use Comment: rarely - Recreational Drug Use Recreational Drug Use: No - Living Situation & Occupation Living situation: Reports: (lives with , will be 59 years next month, had 4 children, retired, lives [place] of [place] Occupation: Disabled H&P Review of Systems - Review of Systems: Review Of Systems: See Below General: Reports: Weakness, Fatigue, Decreased Appetite, Other ( reports she is more restless. increased weakness.) HEENT: Reports: No Symptoms ( reports she is able to eat regular food. swallowing is intact. ate a big mac today.) Pulmonary: Reports: No Symptoms Cardiovascular: Reports: No Symptoms Gastrointestinal: Reports: Other (reports 3 stools today, which is unusual) Genitourinary: Reports: Incontinence (wears an adult diaper), Other (reports has recurrent UTI) 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: Reports: No Symptoms Skin: Reports: Bruising (multi bruising noted to arms and legs.) Psychiatric: Reports: Agitation (increased agitiation.) Neurological: Reports: Pre-Existing Deficit (hx of CVA 14 years ago, right sided weakness, non-verbal), Seizure (seizure disorder.), Weakness (increased weakness the past few days) Hematologic/Lymphatic: Reports: Easy Bleeding, Easy Bruising (coumadin therapy for chronic A-fib) Immunologic: Reports: No Symptoms Exam - Exam Exam: See Below - Vital Signs Vital Signs: Last Vital Signs Temp 35.8 C L 08/09/19 16:55 Pulse 106 H 02/13/20 19:29 Resp 14 08/09/19 16:55 BP 110/62 08/09/19 19:29 Pulse Ox 99 08/09/19 16:55 Weight: 70.76 kg - Exam General: Alert, Cooperative, Mild Distress, Lethargic (Grimaces and making facial frowns, intermittent crying. ) HEENT: PERRLA, Pupils Equal, Pupils Reactive, Other (mouth is dry). No: TMs Clear (packed with ear wax) Neck: Supple, Trachea Midline Lungs: Clear to Auscultation, Normal Respiratory Effort Cardiovascular: Regular Rate, Regular Rhythm GI/Abdominal Exam: Normal Bowel Sounds, Soft, Non-Tender (Female) Exam: Deferred Rectal (Female) Exam: Deferred Back Exam: Normal Inspection Extremities: Slow Capillary Refill (feet and lower legs are cool to touch. ), Limited Range of Motion Skin: Warm, Dry, Cool, [place] (multi bruising noted to arms and legs.) Neurological: Reflexes Unequal Neuro Extensive - Mental Status: Inattentive Neuro Extensive - Motor, Sensory, Reflexes: Motor/Sensory Deficits Psychiatric: Anxious, Agitated - Patient Data Lab Results Last 24 hrs: Laboratory Results - last 24 hr 08/09/19 08/09/19 08/09/19 Range/Units 16:52 16:52 16:52 WBC 8.3 (4.5-11.0) K/uL RBC 4.21 (3.30-5.50) M/uL Hgb 12.8 (12.0-15.0) g/dL Hct 41.7 (36.0-48.0) % MCV 99 H (80-98) fL MCH 30 (27-31) pg MCHC 31 L (32-36) % Plt Count 152 (150-400) K/uL PT 28.1 H (9.5-12.0) sec INR 2.76 H (0.80-1.20) Sodium 153 H (140-148) mmol/L Potassium 3.4 L (3.6-5.2) mmol/L Chloride 114 H (100-108) mmol/L Carbon Dioxide 29 (21-32) mmol/L Anion Gap 13.4 (5.0-14.0) mmol/L BUN 23 H D (7-18) mg/dL Creatinine 0.9 (0.6-1.0) mg/dL Est Cr Clr Drug Dosing 48.48 mL/min Estimated GFR (MDRD) > 60 (>60) Glucose 94 (74-106) mg/dL Calcium 8.8 (8.5-10.1) mg/dL Troponin I < 0.017 (0.000-0.056) ng/mL Urine Color (YELLOW) Urine Appearance (CLEAR) Urine pH (5.0-8.0) Ur Specific [place] (1.008-1.030) Urine Protein (NEGATIVE) mg/dL Urine Glucose (UA) (NEGATIVE) mg/dL Urine Ketones (NEGATIVE) mg/dL Urine Occult Blood (NEGATIVE) Urine Nitrite (NEGATIVE) Urine Bilirubin (NEGATIVE) Urine Urobilinogen (0.2-1.0) EU/dL Ur Leukocyte Esterase (NEGATIVE) Urine RBC (0-5) Urine WBC (0-5) Ur Epithelial Cells Amorphous Sediment Urine Bacteria Urine Mucus 08/09/19 Range/Units 16:53 WBC (4.5-11.0) K/uL RBC (3.30-5.50) M/uL Hgb (12.0-15.0) g/dL Hct (36.0-48.0) % MCV (80-98) fL MCH (27-31) pg MCHC (32-36) % Plt Count (150-400) K/uL PT (9.5-12.0) sec INR (0.80-1.20) Sodium (140-148) mmol/L Potassium (3.6-5.2) mmol/L Chloride (100-108) mmol/L Carbon Dioxide (21-32) mmol/L Anion Gap (5.0-14.0) mmol/L BUN (7-18) mg/dL Creatinine (0.6-1.0) mg/dL Est Cr Clr Drug Dosing mL/min Estimated GFR (MDRD) (>60) Glucose (74-106) mg/dL Calcium (8.5-10.1) mg/dL Troponin I (0.000-0.056) ng/mL Urine Color [place] A (YELLOW) Urine Appearance Cloudy A (CLEAR) Urine pH 6.0 (5.0-8.0) Ur Specific [place] 1.025 (1.008-1.030) Urine Protein Trace H (NEGATIVE) mg/dL Urine Glucose (UA) Negative (NEGATIVE) mg/dL Urine Ketones Negative (NEGATIVE) mg/dL Urine Occult Blood Small H (NEGATIVE) Urine Nitrite Negative (NEGATIVE) Urine Bilirubin Small H (NEGATIVE) Urine Urobilinogen 1.0 (0.2-1.0) EU/dL Ur Leukocyte Esterase Negative (NEGATIVE) Urine RBC 5-10 H (0-5) Urine WBC 0-5 (0-5) Ur Epithelial Cells Not seen Amorphous Sediment Many Urine Bacteria Few Urine Mucus Few Result Diagrams: 08/09/19 16:52 08/09/19 16:52 Sepsis Event Note - Evaluation Sepsis Screening Result: No Definite Risk - Focused Exam Vital Signs: Vital Signs Temp Pulse Resp BP Pulse Ox 08/09/19 19:29 106 H 110/62 08/09/19 17:42 91 108/53 L 08/09/19 17:22 67 117/63 08/09/19 16:55 35.8 C L 74 14 95/57 L 99 08/09/19 16:38 35.8 C L 74 14 95/57 L 99 Date Exam was Performed: 08/09/19 Time Exam was Performed: 20:15 - Problem List (1) Hypernatremia SNOMED Code(s): 661893477 ICD Code: E87.0 - HYPEROSMOLALITY AND HYPERNATREMIA Status: Acute Priority: High Current Visit: Yes (2) Mild dehydration SNOMED Code(s): 7883111749568 ICD Code: E86.0 - DEHYDRATION Status: Acute Priority: High Current Visit: Yes (3) Chronic atrial fibrillation SNOMED Code(s): 945874391 ICD Code: I48.2 - CHRONIC ATRIAL FIBRILLATION * DO NOT USE * Status: Chronic Priority: Low Current Visit: Yes (4) History of stroke with residual deficit SNOMED Code(s): 378952951 ICD Code: I69.30 - UNSPECIFIED SEQUELAE OF CEREBRAL INFARCTION Status: Chronic Priority: Low Current Visit: Yes (5) Seizure, epileptic SNOMED Code(s): 66064695 ICD Code: G40.909 - EPILEPSY, UNSP, NOT INTRACTABLE, WITHOUT STATUS EPILEPTICUS Status: Chronic Priority: High Current Visit: Yes Qualifiers: Epilepsy type: unspecified Intractability: not intractable Status epilepticus: without status epilepticus Qualified Code(s): G40.909 - Epilepsy , unspecified, not intractable, without status epilepticus Problem List Initiated/Reviewed/Updated: Yes Orders Last 24hrs: Active Orders 24 hr Category Date Time Status Patient Status Manage Transfer [TRANSFER] Routine ADT 08/09/19 19:48 Ordered NS + KCl 20mEq/L [Normal Saline with 20 mEq KCl] 1,000 Med 08/09/19 18:00 Active ml IV ASDIRECTED Resuscitation Status Routine Resus Stat 08/09/19 19:49 Ordered Medication Orders Potassium Chloride/Sodium Chloride (Normal Saline With 20 Meq Kcl) 1,000 mls @ 1,000 mls/hr IV ASDIRECTED JULIETTE Last Admin: 08/09/19 18:39 Dose: 1,000 mls/hr Assessment/Plan Comment:: ASSESSMENT / PLAN: hypernatremia Sodium 153 79 yo female who has been cared for at home by her since a stroke several yrs ago and who is chronically incontinent is brought in for decreased alertness since awakening this morning. Has acted like this in the past with UTI 's. Has had several normal BM's today. No coughing or fever. No recent head injury. No vomiting. Hypernatremia: reports Harriet has had a rough year with increased weakness and falls at home. Last night she was restless, thrashing about and talking to herself. She fell out of bed again, had a difficulty time getting her back to bed. Today she has be so sleepy and weak. -Admit Observation 2 North for further monitoring -IV Fluids for rehydration NS at 125mL per hour -supplemental oxygen as needed to keep oxygen sat >92% -And a.m. labs: CBC, BMP Seizure disorder -continue home medication -Keppra 1000 mg po bid Chronic A-fib -Coumadin 5 mg po daily -INR/PT in am Hx of CVA with right sided weakness; reports multi falls at home. increased weakness. -non-verbal -need total assistance with ADL and feeding -incontinence of bowel and bladder -consult to PT and OT for strengthening Maintenance issues -Orders home meds: ordered -Nutrition:regular diet, needs assistance with feeding -Walker catheter: not indicated at this time -DVT: Coumadin 5 mg po daily -PPI; Zantac 150 mg po bid CODE STATUS: DNR/DNI Admission status: Admit to Observation -I expect this patient to stay less than 24 hours, not to exceed 96 hours for evaluation and management of this problem admission status: Admit to [address] [place] [address] Disposition: home with with Home Care or [facility]. Primary care provider: Dr. Roberson Hospitalist: Dr. Euceda
[2019-08-09] MEDS ORDERED: Albuterol 0.083% 2.5 MG/3 ML Neb Soln NEB PRN (20:15)
[2019-08-09] MEDS ORDERED: Albuterol/Ipratropium 3.0-0.5 MG/3 ML Neb Soln NEB PRN (20:15)
[2019-08-09] MEDS ORDERED: LORazepam 2 MG/ML SDV IV PRN (20:15)
[2019-08-09] MEDS ORDERED: Acetaminophen 325 MG Tab PO PRN (20:15)
[2019-08-09] MEDS ORDERED: Warfarin 5 MG Tab PO SCH (20:15)
[2019-08-09] MEDS ORDERED: Docusate Sodium 100 MG Cap PO PRN (20:15)
[2019-08-09] MEDS ORDERED: oxyCODONE 5 MG Tab PO PRN (20:15)
[2019-08-09] MEDS ORDERED: Bisacodyl 5 MG Tab PO PRN (20:15)
[2019-08-09] MEDS ORDERED: Ondansetron 4 MG/2 ML SDV IV PRN (20:15)
[2019-08-09] MEDS: Sodium Chloride 0.9% 1,000 ML IV SCH (20:20)
[2019-08-09] MEDS ORDERED: Non-Formulary Medication 1 Each (Ranitidine Hcl [Ranitidine] 150 MG) PO SCH (21:00)
[2019-08-09] MEDS ORDERED: Simvastatin 20 MG Tab PO SCH (21:00)
[2019-08-09] MEDS ORDERED: LEVETIRACETAM 1000 MG PO SCH (21:00)
[2019-08-10] MEDS: Sodium Chloride 0.9% 1,000 ML IV SCH (04:16)
[2019-08-10] MEDS ORDERED: Warfarin Sliding Scale PO SCH (09:00)
[2019-08-10] MEDS ORDERED: Warfarin 5 MG Tab PO SCH (09:00)
[2019-08-10] MEDS ORDERED: FLUoxetine 20 MG Cap PO SCH (09:00)
[2019-08-10] MEDS ORDERED: Metoprolol Succinate 25 MG Tab.ER PO SCH (09:00)
[2019-08-10] MEDS ORDERED: Warfarin 5 MG Tab (PTOM) PO SCH (13:00)
--- NOTE | 2019-08-10 13:16 | PCM.PN ---
- General Info Date of Service: 08/10/19 Subjective Update: No acute events following admission. Still little bit weak but seems to be better today. Appetite improving. Sodium a little bit better but still mildly elevated. No fevers. No nausea or abdominal pain. We had a long discussion today with her about potential options to provide care outside of the hospital including home with home health care versus home with hospice versus senior care. He is not interested in senior care placement at this time. Functional Status: Reports: Pain Controlled, Tolerating Diet - Review of Systems General: Denies: Fever Neurological: Reports: Confusion - Patient Data Vitals - Most Recent: Last Vital Signs Temp 35.3 C L 08/10/19 11:00 Pulse 82 08/10/19 11:00 Resp 18 08/10/19 11:00 BP 121/64 08/10/19 11:00 Pulse Ox 99 08/10/19 11:00 Weight - Most Recent: 75.931 kg I&O - Last 24 Hours: Intake & Output 08/09/19 08/10/19 08/10/19 22:59 06:59 14:59 Intake Total 948 300 Balance 948 300 Lab Results Last 24 Hours: Laboratory Results - last 24 hr 08/09/19 08/09/19 08/09/19 Range/Units 16:52 16:52 16:52 WBC 8.3 (4.5-11.0) K/uL RBC 4.21 (3.30-5.50) M/uL Hgb 12.8 (12.0-15.0) g/dL Hct 41.7 (36.0-48.0) % MCV 99 H (80-98) fL MCH 30 (27-31) pg MCHC 31 L (32-36) % Plt Count 152 (150-400) K/uL Neut % (Auto) (36-66) % Lymph % (Auto) (24-44) % [place] % (Auto) (2-6) % Eos % (Auto) (2-4) % Baso % (Auto) (0-1) % PT 28.1 H (9.5-12.0) sec INR 2.76 H (0.80-1.20) Sodium 153 H (140-148) mmol/L Potassium 3.4 L (3.6-5.2) mmol/L Chloride 114 H (100-108) mmol/L Carbon Dioxide 29 (21-32) mmol/L Anion Gap 13.4 (5.0-14.0) mmol/L BUN 23 H D (7-18) mg/dL Creatinine 0.9 (0.6-1.0) mg/dL Est Cr Clr Drug Dosing 48.48 mL/min Estimated GFR (MDRD) > 60 (>60) Glucose 94 (74-106) mg/dL Calcium 8.8 (8.5-10.1) mg/dL Troponin I < 0.017 (0.000-0.056) ng/mL Urine Color (YELLOW) Urine Appearance (CLEAR) Urine pH (5.0-8.0) Ur Specific [place] (1.008-1.030) Urine Protein (NEGATIVE) mg/dL Urine Glucose (UA) (NEGATIVE) mg/dL Urine Ketones (NEGATIVE) mg/dL Urine Occult Blood (NEGATIVE) Urine Nitrite (NEGATIVE) Urine Bilirubin (NEGATIVE) Urine Urobilinogen (0.2-1.0) EU/dL Ur Leukocyte Esterase (NEGATIVE) Urine RBC (0-5) Urine WBC (0-5) Ur Epithelial Cells Amorphous Sediment Urine Bacteria Urine Mucus 08/09/19 08/10/19 08/10/19 Range/Units 16:53 06:01 06:01 WBC 6.4 (4.5-11.0) K/uL RBC 3.87 (3.30-5.50) M/uL Hgb 12.1 (12.0-15.0) g/dL Hct 38.5 (36.0-48.0) % MCV 100 H (80-98) fL MCH 31 (27-31) pg MCHC 31 L (32-36) % Plt Count 137 L (150-400) K/uL Neut % (Auto) 47 (36-66) % Lymph % (Auto) 39 (24-44) % [place] % (Auto) 9 H (2-6) % Eos % (Auto) 4 (2-4) % Baso % (Auto) 1 (0-1) % PT (9.5-12.0) sec INR (0.80-1.20) Sodium 152 H (140-148) mmol/L Potassium 3.7 (3.6-5.2) mmol/L Chloride 117 H (100-108) mmol/L Carbon Dioxide 26 (21-32) mmol/L Anion Gap 12.7 (5.0-14.0) mmol/L BUN 20 H (7-18) mg/dL Creatinine 0.8 (0.6-1.0) mg/dL Est Cr Clr Drug Dosing 54.40 mL/min Estimated GFR (MDRD) > 60 (>60) Glucose 93 (74-106) mg/dL Calcium 8.2 L (8.5-10.1) mg/dL Troponin I (0.000-0.056) ng/mL Urine Color [place] A (YELLOW) Urine Appearance Cloudy A (CLEAR) Urine pH 6.0 (5.0-8.0) Ur Specific [place] 1.025 (1.008-1.030) Urine Protein Trace H (NEGATIVE) mg/dL Urine Glucose (UA) Negative (NEGATIVE) mg/dL Urine Ketones Negative (NEGATIVE) mg/dL Urine Occult Blood Small H (NEGATIVE) Urine Nitrite Negative (NEGATIVE) Urine Bilirubin Small H (NEGATIVE) Urine Urobilinogen 1.0 (0.2-1.0) EU/dL Ur Leukocyte Esterase Negative (NEGATIVE) Urine RBC 5-10 H (0-5) Urine WBC 0-5 (0-5) Ur Epithelial Cells Not seen Amorphous Sediment Many Urine Bacteria Few Urine Mucus Few 08/10/19 Range/Units 06:01 WBC (4.5-11.0) K/uL RBC (3.30-5.50) M/uL Hgb (12.0-15.0) g/dL Hct (36.0-48.0) % MCV (80-98) fL MCH (27-31) pg MCHC (32-36) % Plt Count (150-400) K/uL Neut % (Auto) (36-66) % Lymph % (Auto) (24-44) % [place] % (Auto) (2-6) % Eos % (Auto) (2-4) % Baso % (Auto) (0-1) % PT 27.9 H (9.5-12.0) sec INR 2.73 H (0.80-1.20) Sodium (140-148) mmol/L Potassium (3.6-5.2) mmol/L Chloride (100-108) mmol/L Carbon Dioxide (21-32) mmol/L Anion Gap (5.0-14.0) mmol/L BUN (7-18) mg/dL Creatinine (0.6-1.0) mg/dL Est Cr Clr Drug Dosing mL/min Estimated GFR (MDRD) (>60) Glucose (74-106) mg/dL Calcium (8.5-10.1) mg/dL Troponin I (0.000-0.056) ng/mL Urine Color (YELLOW) Urine Appearance (CLEAR) Urine pH (5.0-8.0) Ur Specific [place] (1.008-1.030) Urine Protein (NEGATIVE) mg/dL Urine Glucose (UA) (NEGATIVE) mg/dL Urine Ketones (NEGATIVE) mg/dL Urine Occult Blood (NEGATIVE) Urine Nitrite (NEGATIVE) Urine Bilirubin (NEGATIVE) Urine Urobilinogen (0.2-1.0) EU/dL Ur Leukocyte Esterase (NEGATIVE) Urine RBC (0-5) Urine WBC (0-5) Ur Epithelial Cells Amorphous Sediment Urine Bacteria Urine Mucus Med Orders - Current: Current Medications Acetaminophen (Tylenol) 650 mg PO Q4H PRN PRN Reason: Pain (Mild 1-3)/fever Albuterol (Proventil Neb Soln) 2.5 mg NEB Q4H PRN PRN Reason: Shortness Of Breath/wheezing Albuterol/Ipratropium (Duoneb 3.0-0.5 Mg/3 Ml) 3 ml NEB QID PRN PRN Reason: Shortness Of Breath/wheezing Bisacodyl (Dulcolax) 5 mg PO DAILY PRN PRN Reason: Constipation Docusate Sodium (Colace) 100 mg PO BID PRN PRN Reason: Constipation Fluoxetine HCl (Prozac) 20 mg PO DAILY [facility] Sodium Chloride (Normal Saline) 1,000 mls @ 125 mls/hr IV ASDIRECTED [facility] Last Admin: 08/10/19 04:16 Dose: 125 mls/hr Potassium Chloride/Sodium Chloride (1/2 Ns With 20 Meq Kcl) 1,000 mls @ 75 mls/ hr IV ASDIRECTED [facility] Lorazepam (Ativan) 1 mg IV Q6H PRN PRN Reason: Agitation Metoprolol Succinate (Toprol Xl) 25 mg PO DAILY [facility] Ondansetron HCl (Zofran) 4 mg IV Q4H PRN PRN Reason: Nausea/Vomiting Oxycodone HCl (Oxycodone) 5 mg PO Q4H PRN PRN Reason: Pain (moderate 4-6) Levetiracetam 500mg (Tab (Ptom)) 0 each PO BID [facility] Ranitindine 150mg (Tab (Ptom)) 0 each PO BID [facility] Warfarin Sodium (Coumadin) 5 mg PO DAILY@1300 [facility] Discontinued Medications Potassium Chloride/Sodium Chloride (Normal Saline With 20 Meq Kcl) 1,000 mls @ 1,000 mls/hr IV ASDIRECTED [facility] Last Admin: 08/09/19 18:39 Dose: 1,000 mls/hr Midazolam HCl (Versed 1 Mg/Ml) 3 mg IVPUSH ONETIME ONE Stop: 08/09/19 18:13 Last Admin: 08/09/19 18:38 Dose: Not Given Simvastatin (Zocor) 20 mg PO BEDTIME [facility] Warfarin Sodium (Coumadin) 5 mg PO DAILY [facility] Warfarin Sodium (Coumadin) 5 mg PO ASDIRECTED [facility] - Exam Quality Assessment: No: Supplemental Oxygen General: Alert, Cooperative, No Acute Distress Lungs: Normal Respiratory Effort Cardiovascular: Regular Rhythm GI/Abdominal Exam: Soft, No Distention Extremities: No Pedal Edema Psy/Mental Status: Alert. No: Agitated Sepsis Event Note - Evaluation Sepsis Screening Result: No Definite Risk - Focused Exam Vital Signs: Vital Signs Temp Pulse Resp BP Pulse Ox 08/10/19 11:00 35.3 C L 82 18 121/64 99 08/10/19 07:00 35.1 C L 16 106/59 L 95 08/10/19 03:00 35.3 C L 88 15 107/45 L 95 Date Exam was Performed: 08/10/19 Time Exam was Performed: 14:42 - Problem List Review Problem List Initiated/Reviewed/Updated: Yes - My Orders Last 24 Hours: My Active Orders 08/10/19 13:00 Warfarin [Coumadin] 5 mg PO DAILY@1300 08/10/19 13:15 Sodium Chloride 0.45% with KCl 20 mEq @ 75 mL/Hr (1000 mL) Sodium Chloride 0.45 % with KCl [1/2 NS with 20 mEq KCl] 1,000 ml IV ASDIRECTED - Plan Plan:: ASSESSMENT / PLAN: Hypernatremia-secondary to dehydration. Little better today with hydration overnight. -Continue IV fluids with half-normal saline -Encourage oral intake Seizure disorder-no seizures. Rate controlled. INR therapeutic. -continue home medication -Keppra 1000 mg po bid Chronic A-fib- -Coumadin 5 mg po daily -INR/PT in am Hx of CVA with right sided weakness- reports multi falls at home. increased weakness. He is interested in talking to hospice for information. Not sure if he will utilize home care versus hospice. Not interested in a senior care. -non-verbal -need total assistance with ADL and feeding -incontinence of bowel and bladder -consult to PT and OT for strengthening Maintenance issues -Nutrition:regular diet, needs assistance with feeding -Walker catheter: not indicated at this time -DVT: Coumadin 5 mg po daily -PPI; Zantac 150 mg po bid Admission status: Admit to Observation -I expect this patient to stay less than 24 hours, not to exceed 96 hours for evaluation and management of this problem admission status: Admit to [address] [place] [address] Disposition: home with with Home Care versus hospice. Shashi Euceda MD
[2019-08-10] MEDS: LEVETIRACETAM 500 MG PO SCH ×2 (13:32→20:10)
[2019-08-10] MEDS: Metoprolol Succinate 25 MG Tab.ER (PTOM) PO SCH (13:33)
[2019-08-10] MEDS: RANITIDINE 150 MG PO SCH ×2 (13:33→20:11)
[2019-08-10] MEDS: FLUoxetine 20 MG Cap PO SCH (13:33)
[2019-08-10] MEDS: Sodium Chloride 0.45% with KCl 1,000 ML IV SCH (13:50)
[2019-08-10] MEDS ORDERED: Simvastatin 20 MG Tab (PTOM) PO SCH (21:00)
[2019-08-11] MEDS: Sodium Chloride 0.45% with KCl 1,000 ML IV SCH (03:22)
[2019-08-11 07:44] VITALS: BP 133/84; PULSE 108
[2019-08-11] MEDS: LEVETIRACETAM 500 MG PO SCH (07:59)
[2019-08-11] MEDS: Metoprolol Succinate 25 MG Tab.ER (PTOM) PO SCH (07:59)
[2019-08-11] MEDS: FLUoxetine 20 MG Cap PO SCH (07:59)
[2019-08-11] MEDS: RANITIDINE 150 MG PO SCH (08:00)
--- NOTE | 2019-08-11 11:14 | PCM.DCSUM1 ---
Discharge Summary - Hospital Course Brief History: 79-year-old female with history of previous CVA and left hemiparesis as well as Alzheimer's dementia who presented with intermittent lethargy and agitation. She was admitted for observation and hydration with dehydration and hypernatremia noted. Diagnosis: Stroke: No - Discharge Data Discharge Date: 08/11/19 Discharge Disposition: Home, W Home Health Agency 06 Condition: Fair - Referral to Home Health Date of Face to Face Encounter: 08/11/19 Reason for Homebound Status: hemiparesis 2/2 stroke (chronic) Primary Care Physician: PCP None Skilled Need: nursing - Patient Summary/Data Consults: Consultations 08/09/19 20:15 OT Evaluation and Treatment [CONS] Routine Please Evaluate and Treat. OT Reason for Consult: Strengthening Special Instructions: hx of CVA 13 years ago, with right sided weakness. non- verbal This query below is only for informational purposes and is not editable. PT Evaluation and Treatment [CONS] Routine Please Evaluate and Treat. PT Reason for Consult: Strengthening This query below is only for informational purposes and is not editable. Hospital Course: Harriet presented to the emergency room with alternating lethargy and agitation. Work-up in the emergency room revealed evidence for dehydration and hypernatremia but no evidence to support infection. She was started on IV fluids and admitted to the hospital for additional hydration and observation. Overnight following admission there were no acute issues. Her mental status improved and seemed to return to baseline. Her sodium level did remain elevated but was slightly better the morning after admission. She has not had any fevers. There have been no behavior issues during the hospital stay. We did elect to keep her a second night for additional hydration prior to going home. The second night she did not have any significant behavior issues and seems to be at her baseline. Oral intake has been acceptable as long as it is offered and close by. I did have a long talk with Morgan in the the day before discharge. He has been working very hard to take good care of his Harriet at home. He has no interest in her going to a senior care. We did review outpatient resources including home health care and hospice. He felt that given her decline that hospice services may be appropriate for her. She has had increasing frequency of emergency room visits and hospitalizations. Her strength has been declining. Her bad days have been increasing in frequency and oral intake has been declining. She is incontinent of bowel and bladder. She is dependent for all of her activities. He will be considering hospice admission after hospital discharge. - Patient Instructions Diet: Usual Diet as Tolerated Activity: As Tolerated Showering/Bathing: May Shower Notify Provider of: Fever, Increased Pain Other/Special Instructions: 1. Resume your previous home health care orders - Discharge Plan *PRESCRIPTION DRUG MONITORING PROGRAM REVIEWED*: No *COPY OF PRESCRIPTION DRUG MONITORING REPORT IN PATIENT ZENOBIA: No Home Medications: Home Meds Metoprolol Succinate [Toprol XL] 25 mg PO DAILY 02/18/16 [History] Simvastatin 20 mg PO BEDTIME 02/18/16 [History] Warfarin [Coumadin] 5 mg PO ASDIRECTED 02/18/16 [History] levETIRAcetam [Keppra] 1,000 mg PO BID 02/18/16 [History] FLUoxetine HCl [Fluoxetine HCl] 20 mg PO DAILY 07/11/19 [History] Ranitidine HCl [Ranitidine] 150 mg PO BID 07/31/19 [History] Oxygen Therapy Mode: Room Air Patient Handouts: Dehydration, Adult, [id number] Referrals: PCP,None [Primary Care Provider] - (f/u with your primary care as needed ) - Discharge Summary/Plan Comment DC Time >30 min.: No - Patient Data Vitals - Most Recent: Last Vital Signs Temp 35.8 C L 08/11/19 07:41 Pulse 108 H 08/11/19 07:59 Resp 16 08/11/19 07:41 BP 133/84 08/11/19 07:59 Pulse Ox 94 L 08/11/19 07:41 Weight - Most Recent: 75.931 kg I&O - Last 24 hours: Intake & Output 08/10/19 08/11/19 08/11/19 22:59 06:59 14:59 Intake Total 780 818 Balance 780 818 Med Orders - Current: Current Medications Acetaminophen (Tylenol) 650 mg PO Q4H PRN PRN Reason: Pain (Mild 1-3)/fever Albuterol (Proventil Neb Soln) 2.5 mg NEB Q4H PRN PRN Reason: Shortness Of Breath/wheezing Albuterol/Ipratropium (Duoneb 3.0-0.5 Mg/3 Ml) 3 ml NEB QID PRN PRN Reason: Shortness Of Breath/wheezing Bisacodyl (Dulcolax) 5 mg PO DAILY PRN PRN Reason: Constipation Docusate Sodium (Colace) 100 mg PO BID PRN PRN Reason: Constipation Fluoxetine HCl (Prozac) 20 mg PO DAILY [facility] Last Admin: 08/11/19 07:59 Dose: 20 mg Sodium Chloride (Normal Saline) 1,000 mls @ 125 mls/hr IV ASDIRECTED [facility] Last Admin: 08/10/19 04:16 Dose: 125 mls/hr Potassium Chloride/Sodium Chloride (1/2 Ns With 20 Meq Kcl) 1,000 mls @ 75 mls/ hr IV ASDIRECTED [facility] Last Admin: 08/11/19 03:22 Dose: 75 mls/hr Lorazepam (Ativan) 1 mg IV Q6H PRN PRN Reason: Agitation Metoprolol Succinate (Toprol Xl) 25 mg PO DAILY [facility] Last Admin: 08/11/19 07:59 Dose: 25 mg Ondansetron HCl (Zofran) 4 mg IV Q4H PRN PRN Reason: Nausea/Vomiting Oxycodone HCl (Oxycodone) 5 mg PO Q4H PRN PRN Reason: Pain (moderate 4-6) Levetiracetam 500mg (Tab (Ptom)) 0 each PO BID [facility] Last Admin: 08/11/19 07:59 Dose: 1 each Ranitindine 150mg (Tab (Ptom)) 0 each PO BID [facility] Last Admin: 08/11/19 08:00 Dose: 1 each Warfarin Sodium (Coumadin) 5 mg PO DAILY@1300 [facility] Last Admin: 08/10/19 13:33 Dose: 5 mg Discontinued Medications Potassium Chloride/Sodium Chloride (Normal Saline With 20 Meq Kcl) 1,000 mls @ 1,000 mls/hr IV ASDIRECTED [facility] Last Admin: 08/09/19 18:39 Dose: 1,000 mls/hr Midazolam HCl (Versed 1 Mg/Ml) 3 mg IVPUSH ONETIME ONE Stop: 08/09/19 18:13 Last Admin: 08/09/19 18:38 Dose: Not Given Simvastatin (Zocor) 20 mg PO BEDTIME [facility] Warfarin Sodium (Coumadin) 5 mg PO DAILY [facility] Warfarin Sodium (Coumadin) 5 mg PO ASDIRECTED [facility] - Exam Quality Assessment: Denies: Supplemental Oxygen General: Reports: Alert, Cooperative, No Acute Distress Lungs: Reports: Normal Respiratory Effort Psy/Mental Status: Reports: Alert. Denies: Agitated
== END 2019-08-11 12:55 | disposition home health service (06) ==
LOC: JP.ED 15:47 → JP.MS 19:48
PROVIDERS: ADMIT Internal Medicine; ATTEND Internal Medicine
DX: E87.0 Hyperosmolality and hypernatremia (principal); E86.0 Dehydration; I48.20 Chronic atrial fibrillation, unspecified; I69.351 Hemiplegia and hemiparesis following cerebral infarction affecting right dominant side; G30.9 Alzheimer's disease, unspecified; F02.80 Dementia in other diseases classified elsewhere, unspecified severity, without behavioral disturbance, psychotic disturbance, mood disturbance, and anxiety; E78.00 Pure hypercholesterolemia, unspecified; K21.9 Gastro-esophageal reflux disease without esophagitis; G40.909 Epilepsy, unspecified, not intractable, without status epilepticus; Z79.899 Other long term (current) drug therapy; Z79.01 Long term (current) use of anticoagulants; Z88.0 Allergy status to penicillin
CPT/HCPCS: 36415; 70450; 80048; 81001; 84484; 85025; 85027; 85610; 96360; 96361; 97162; 97165; 97530; 99284; 99285; A9270; G0378; J3480; J7030